=== PATIENT | female | born 1940 | race American Indian/Alaskan Native ===

== ENCOUNTER 2017-10-14 16:45 | Inpatient (IN) | payer OTHER ==
[2017-10-14] MEDS ORDERED: NACL 0.9% 1000 ML 1,000 ML IV ONE ×3 (17:08→22:49)
[2017-10-14] MEDS ORDERED: ZOFRAN IV ONE (17:09)
[2017-10-14] MEDS ORDERED: MORPHINE IV ONE (17:09)
--- NOTE | 2017-10-14 17:16 | Emergency Department Report ---
ED Abdominal Pain HPI - General Chief Complaint: Abdominal Pain Stated Complaint: ABDOMINAL PAIN Time Seen by Provider: 10/14/17 17:03 Source: patient Mode of arrival: Ambulatory Limitations: No Limitations - History of Present Illness Initial Comments: Patient is 77 years old female history of diabetes hypertension and history of incarcerated abdominal hernia in 2014 that required immediate laparoscopic surgery. Patient had sepsis at that time. Patient presented today complaining of abdominal pain for the last 2 days and having difficulty passing stool and flatus. Patient stated that she's been having vomiting since yesterday. She denied any fever. MD Complaint: abdominal pain -: days(s) Location: diffuse Severity: moderate Severity scale (0 -10): 6 - Related Data Home Medications Medication Instructions Recorded Confirmed Last Taken Lisinopril/Hydrochlorothiazide 1 tab PO QDAY 08/13/14 10/15/17 Unknown [Zestoretic 20-12.5 mg] Aspirin [Lo-Dose Aspirin EC] 81 mg PO DAILY 10/15/17 10/15/17 Unknown metFORMIN [Glucophage] 1,000 mg PO BID 10/15/17 10/15/17 Unknown Allergies Allergy/AdvReac Type Severity Reaction Status Date / Time acetaminophen [From Percocet] AdvReac Severe Unknown Verified 08/05/14 12:14 oxycodone HCl [From Percocet] AdvReac Severe Unknown Verified 08/05/14 12:14 LEVAQUIN Allergy Rash Uncoded 07/22/14 07:53 QUININE Allergy Rash Uncoded 07/22/14 07:52 ED Review of Systems ROS: Stated complaint: ABDOMINAL PAIN Other details as noted in HPI Comment: All other systems reviewed and negative Constitutional: denies: chills, fever Respiratory: denies: cough, orthopnea, shortness of breath, SOB with exertion, SOB at rest, wheezing Cardiovascular: denies: chest pain, palpitations, dyspnea on exertion Gastrointestinal: abdominal pain, nausea, vomiting, constipation. denies: diarrhea, hematemesis, melena, hematochezia Musculoskeletal: denies: back pain, joint swelling Neurological: denies: headache, weakness, numbness, paresthesias, confusion ED Past Medical Hx - Past Medical History Hx Hypertension: Yes Hx Diabetes: Yes Hx Renal Disease: Yes (ARF improving, BUN/CR 11/1.5) Additional medical history: abd hernia - Surgical History Past Surgical History?: Yes Additional Surgical History: hernia surgery - Social History Smoking Status: Never Smoker Substance Use Type: None - Medications Home Medications: Home Medications Medication Instructions Recorded Confirmed Last Taken Type Lisinopril/Hydrochlorothiazide 1 tab PO QDAY 08/13/14 10/15/17 Unknown History [Zestoretic 20-12.5 mg] Aspirin [Lo-Dose Aspirin EC] 81 mg PO DAILY 10/15/17 10/15/17 Unknown History metFORMIN [Glucophage] 1,000 mg PO BID 10/15/17 10/15/17 Unknown History ED Physical Exam - General Limitations: No Limitations General appearance: alert, in no apparent distress - Head Head exam: Present: atraumatic, normocephalic, normal inspection - Eye Eye exam: Present: normal appearance, PERRL - ENT ENT exam: Present: normal exam, mucous membranes dry - Neck Neck exam: Present: normal inspection, full ROM. Absent: tenderness, meningismus, lymphadenopathy, thyromegaly - Respiratory Respiratory exam: Present: normal lung sounds bilaterally. Absent: respiratory distress, wheezes, rales, rhonchi, chest wall tenderness, accessory muscle use, decreased breath sounds, prolonged expiratory - Cardiovascular Cardiovascular Exam: Present: regular rate, normal rhythm, normal heart sounds - GI/Abdominal GI/Abdominal exam: Present: soft, distended, tenderness, diminished bowel sounds , hernia. Absent: guarding, rebound, rigid, organomegaly, mass, bruit, pulsatile mass - Extremities Exam Extremities exam: Present: normal inspection, full ROM, normal capillary refill - Back Exam Back exam: Present: normal inspection, full ROM. Absent: tenderness, CVA tenderness (R), CVA tenderness (L), muscle spasm, paraspinal tenderness, vertebral tenderness - Neurological Exam Neurological exam: Present: alert, oriented X3, CN II-XII intact, normal gait - Skin Skin exam: Present: warm, dry, normal color ED Course Vital Signs 10/14/17 10/14/17 10/14/17 16:51 18:12 18:15 Temperature 98.3 F Pulse Rate 82 Respiratory 16 Rate Blood Pressure 108/50 112/46 O2 Sat by Pulse 96 70 L 93 Oximetry 10/14/17 10/14/17 10/14/17 18:30 19:00 19:30 Temperature Pulse Rate Respiratory Rate Blood Pressure 112/46 120/48 120/48 O2 Sat by Pulse 96 97 95 Oximetry 10/14/17 10/14/17 10/14/17 20:53 21:00 21:30 Temperature Pulse Rate Respiratory Rate Blood Pressure 120/48 125/55 120/48 O2 Sat by Pulse 95 96 95 Oximetry 10/14/17 10/15/17 21:38 02:26 Temperature 98.1 F Pulse Rate 82 Respiratory 18 Rate Blood Pressure 120/48 119/53 O2 Sat by Pulse 94 97 Oximetry ED Medical Decision Making - Lab Data Result diagrams: 10/16/17 21:50 10/16/17 04:29 Critical care attestation.: If time is entered above; I have spent that time in minutes in the direct care of this critically ill patient, excluding procedure time. ED Disposition Clinical Impression: Acute hyperglycemia, Abdominal pain, Small bowel obstruction, partial Disposition: DC-[id number] OP ADMIT IP TO THIS HOSP Is pt being admited?: Yes Condition: Stable
[2017-10-14 17:53] LABS: Basophils % (Auto) 0.4 % (0.0-1.8); Eosinophils # (Auto) 0.1 K/mm3 (0.0-0.4); Eosinophils % (Auto) 0.5 % (0.0-4.3); Hematocrit 36.5 % (30.3-42.9); Lymphocytes # (Auto) 1.7 K/mm3 (1.2-5.4); Lymphocytes % (Auto) 13.5 % (13.4-35.0); Mean Corpuscular HGB Conc 33 % (30-34); Mean Corpuscular Hemoglobin 26 pg (28-32); Mean Corpuscular Volume 80 fl (79-97); Monocytes # (Auto) 1.4 K/mm3 (0.0-0.8); Monocytes % (Auto) 10.9 % (0.0-7.3); Platelet Count 240 K/mm3 (140-440); Red Blood Count 4.59 M/mm3 (3.65-5.03); Red Cell Distribution Width 13.4 % (13.2-15.2)
[2017-10-14] MEDS ORDERED: ZOSYN/NS 3.375GM/50ML 3.375 GM/50 ML BAG IV ONE (18:00)
[2017-10-14 18:10] LABS: Albumin 3.5 g/dL (3.9-5); Bilirubin,Direct 0.3 mg/dL (0-0.2)
[2017-10-14] MEDS: ZOSYN/NS 3.375GM/50ML 3.375 GM/50 ML BAG IV SCH ×2 (18:54→19:13)
[2017-10-14] MEDS ORDERED: HumuLIN R IV ONE (19:29)
--- NOTE | 2017-10-14 21:23 | Cat Scan Report ---
FINAL REPORT PROCEDURE: CT ABDOMEN PELVIS W CON TECHNIQUE: Computerized axial tomography of the abdomen and pelvis was performed after the IV injection of iodinated nonionic contrast. HISTORY: abdominal pain/obstructed abdominal hernia COMPARISON: No prior studies are available for comparison. FINDINGS: Lower Lung mensah: There appears to be a small amount of dependent atelectasis. No dense consolidations are seen. Upper Abdomen: The liver, the gallbladder, the adrenal glands, the pancreas and spleen are unremarkable. Kidneys, Ureters and Urinary bladder: Extrarenal pelvis of the right and left kidneys present, normal variant. The kidneys, the ureters and urinary bladder otherwise are unremarkable. Retroperitoneum: Atherosclerotic changes are seen in the abdominal aorta and iliac arteries. No aneurysm is visualized. Nonspecific subcentimeter lymph nodes are seen in the retroperitoneum. No pathologically enlarged lymph nodes are identified. Bowel: There are 2 anterior abdominal hernias present. These are fairly large. These are both located in the midline 1 superior to the other. The larger of the 2 is located superior and contains a portion of the transverse colon and several loops of small bowel which are fluid in gas distended. A loop of small bowel partially projecting into this hernia shows a caliber change on image 89 series 2. Small bowel proximal to this partial herniation is fluid distended, distal is not fluid distended. There appears to be a partial obstruction. The smaller of the 2 hernias is fairly large and contains loops of small bowel and mesentery. 2 loops of small bowel projecting into the hernia on axial image 112 series 2 show a significant caliber change at the hernia orifice. This appears to be causing partial bowel obstruction. There is only minimal ascites collected in the lower pelvis in the cul-de-sac. There is no free intraperitoneal gas. Postsurgical changes appear to be present in the anterior abdominal wall with surgical clips seen adjacent to the right and left side of the larger hernia orifice. Reproductive organs: Uterus mildly deviated to the left of midline. No abnormal adnexal masses are seen. Small amount of ascites visualized in the cul-de-sac. Other: No acute bony abnormalities are seen. Small well-defined sclerotic density seen in the left ilium medially superiorly appears represent a bone island. IMPRESSION: There are 2 large anterior abdominal wall hernias as described, 1 is located superior to the other in the midline. The larger of the 2 shows a significant caliber change in a loop of small bowel partially projecting into the hernia orifice to the left and inferiorly as described. Please see above image reference numbers. This appears to be causing a partial bowel obstruction. Hernia orifice inferior also shows significant caliber change in 2 loops of small bowel suggesting partial bowel obstruction as well. There is only minimal ascites. No free air is seen.
[2017-10-14 22:35] LABS: Bilirubin,Urine NEG (Negative); Blood,Urine NEG (Negative); Color,Urine Yellow (Yellow); Mucus,Urine FEW /HPF; Protein,Urine <15 mg/dL mg/dL (Negative); Urobilinogen,Urine < 2.0 mg/dL (<2.0); WBC,Urine < 1.0 /HPF (0.0-6.0)
--- NOTE | 2017-10-14 23:20 | Emergency Department Report ---
Blank Doc - Documentation Documentation: I was asked by Dr. Chau to follow up on this patient's CT scan of the abdomen and pelvis and assist with disposition. The patient is here for abdominal pain, nausea, vomiting and concern for abdominal wall/ventral hernia. The CT scan results are below: PROCEDURE: CT ABDOMEN PELVIS W CON TECHNIQUE: Computerized axial tomography of the abdomen and pelvis was performed after the IV injection of iodinated nonionic contrast. HISTORY: abdominal pain/obstructed abdominal hernia COMPARISON: No prior studies are available for comparison. FINDINGS: Lower Lung mensah: There appears to be a small amount of dependent atelectasis. No dense consolidations are seen. Upper Abdomen: The liver, the gallbladder, the adrenal glands, the pancreas and spleen are unremarkable. Kidneys, Ureters and Urinary bladder: Extrarenal pelvis of the right and left kidneys present, normal variant. The kidneys, the ureters and urinary bladder otherwise are unremarkable. Retroperitoneum: Atherosclerotic changes are seen in the abdominal aorta and iliac arteries. No aneurysm is visualized. Nonspecific subcentimeter lymph nodes are seen in the retroperitoneum. No pathologically enlarged lymph nodes are identified. Bowel: There are 2 anterior abdominal hernias present. These are fairly large. These are both located in the midline 1 superior to the other. The larger of the 2 is located superior and contains a portion of the transverse colon and several loops of small bowel which are fluid in gas distended. A loop of small bowel partially projecting into this hernia shows a caliber change on image 89 series 2. Small bowel proximal to this partial herniation is fluid distended, distal is not fluid distended. There appears to be a partial obstruction. The smaller of the 2 hernias is fairly large and contains loops of small bowel and mesentery. 2 loops of small bowel projecting into the hernia on axial image 112 series 2 show a significant caliber change at the hernia orifice. This appears to be causing partial bowel obstruction. There is only minimal ascites collected in the lower pelvis in the cul-de-sac. There is no free intraperitoneal gas. Postsurgical changes appear to be present in the anterior abdominal wall with surgical clips seen adjacent to the right and left side of the larger hernia orifice. Reproductive organs: Uterus mildly deviated to the left of midline. No abnormal adnexal masses are seen. Small amount of ascites visualized in the cul-de-sac. Other: No acute bony abnormalities are seen. Small well-defined sclerotic density seen in the left ilium medially superiorly appears represent a bone island. IMPRESSION: There are 2 large anterior abdominal wall hernias as described, 1 is located superior to the other in the midline. The larger of the 2 shows a significant caliber change in a loop of small bowel partially projecting into the hernia orifice to the left and inferiorly as described. Please see above image reference numbers. This appears to be causing a partial bowel obstruction. Hernia orifice inferior also shows significant caliber change in 2 loops of small bowel suggesting partial bowel obstruction as well. There is only minimal ascites. No free air is seen. Transcribed By: [email or web address] Dictated By: YURIY RODRIGUEZ MD Electronically Authenticated By: YURIY RODRIGUEZ MD Signed Date/Time: 10/14/172117 I spoke with the general surgeon on-call, Dr. Castro, who is aware of the patient's 2 large abdominal wall hernias and one of them showing a partial small bowel obstruction. The patient has already received IV resuscitation and will be placed at 125 mL per hour. She is already received IV antibiotics. He does not plan to do any surgery emergently tonight. The patient may need surgery tomorrow and he will see the patient as a consult. Patient made NPO. The patient has hyperglycemia and received IV insulin and IV fluid and it is now down to 256 on Accu-Chek. She has hyponatremia with sodium of 120 but has received 2 L of IV fluid thus far and repeat labs I'm sure will be done in a few hours in the morning. The consult for Dr. Castro has been placed and the patient has been accepted for admission by the hospitalist.
[2017-10-15] MEDS ORDERED: SODIUM CHLORIDE FLUSH SYRINGE 10 ML IV PRN (00:36)
[2017-10-15] MEDS ORDERED: D50W (25GM) Syringe IV PRN (00:43)
--- NOTE | 2017-10-15 01:11 | History and Physical Report ---
History of Present Illness Date of examination: 10/15/17 Chief complaint: Abdominal pain History of present illness: Patient is a 77 year old female with history of abdominal hernia repair in 2014 who presented to the ED on account of 5 days history of generalized abdominal pain. She described it as sharp in character, rated 10 over 10, nonradiating and constant in duration. She has associated nausea with vomiting , constipation, generalized weakness and easy fatigability. She denies fever, chills, chest pain, shortness of breath, headaches, dizziness, syncope or loss of consciousness. Past History Past Medical History: diabetes, hypertension, other (abdominal hernia) Past Surgical History: hernia repair Social history: other (she denies tobacco, alcohol or illicit drug use.) Family history: other (reviewed and noncontributory) Medications and Allergies Allergies Allergy/AdvReac Type Severity Reaction Status Date / Time acetaminophen [From Percocet] AdvReac Severe Unknown Verified 08/05/14 12:14 oxycodone HCl [From Percocet] AdvReac Severe Unknown Verified 08/05/14 12:14 LEVAQUIN Allergy Rash Uncoded 07/22/14 07:53 QUININE Allergy Rash Uncoded 07/22/14 07:52 Home Medications Medication Instructions Recorded Confirmed Last Taken Type Lisinopril/Hydrochlorothiazide 1 tab PO QDAY 08/13/14 09/28/14 Unknown History [Zestoretic 20-12.5 mg] Cyproheptadine [Periactin] 4 mg PO Q8HR #42 tablet 09/21/14 09/28/14 Unknown Rx Docusate Sodium [Colace CAP] 100 mg PO BID #30 capsule 09/21/14 09/28/14 Unknown Rx Famotidine [Pepcid] 20 mg PO DAILY #30 tablet 09/21/14 09/28/14 Unknown Rx Gabapentin [Neurontin] 400 mg PO Q8HR #42 capsule 09/21/14 09/28/14 Unknown Rx HYDROcodone/APAP 5-325 [[place] 1 each PO Q6H PRN #56 tablet 09/21/14 09/28/14 Unknown Rx 5-325 mg TAB] Active Meds: Active Medications Dextrose (D50w (25gm) Syringe) 50 ml IV PRN PRN PRN Reason: Hypoglycemia Piperacillin Sod/Tazobactam Sod (Zosyn/Ns 2.25 Gm/50ml) 2.25 gm in 50 mls @ 100 mls/hr IV Q6HR SEBAS Sodium Chloride (Nacl 0.9% 1000 Ml) 1,000 mls @ 125 mls/hr IV ONCE ONE Stop: 10/15/17 06:48 Sodium Chloride (Nacl 0.9% 1000 Ml) 1,000 mls @ 100 mls/hr IV DIRECT SEBAS Insulin Glargine (Lantus) 20 units SUB-Q QHS SEBAS Insulin Human Lispro (Humalog) 0 unit SUB-Q Q6HR SEBAS; Protocol Morphine Sulfate (Morphine) 2 mg IV Q4H PRN PRN Reason: Pain, Moderate (4-6) Ondansetron HCl (Zofran) 4 mg IV Q8H PRN PRN Reason: Nausea And Vomiting Pantoprazole Sodium (Protonix) 40 mg IV DAILY SEBAS Sodium Chloride (Sodium Chloride Flush Syringe 10 Ml) 10 ml IV BID SEBAS Sodium Chloride (Sodium Chloride Flush Syringe 10 Ml) 10 ml IV PRN PRN PRN Reason: LINE FLUSH Review of Systems All systems: negative (except as documented in the HPI, all other systems were reviewed and negative.) Exam - Constitutional Vitals: Temp Pulse Resp BP Pulse Ox 98.3 F 82 16 120/48 94 10/14/17 16:51 10/14/17 16:51 10/14/17 16:51 10/14/17 21:38 10/14/17 21:38 General appearance: Present: no acute distress - EENT Eyes: Present: PERRL, EOM intact ENT: hearing intact, clear oral mucosa - Neck Neck: Present: supple, normal ROM - Respiratory Respiratory effort: normal Respiratory: bilateral: CTA - Cardiovascular Rhythm: regular Heart Sounds: Present: S1 & S2. Absent: rub, click - Extremities Extremities: pulses symmetrical, No edema Peripheral Pulses: within normal limits - Abdominal General gastrointestinal: Present: soft, tender (generalized), distended (on the LT side), hypoactive bowel sounds - Integumentary Integumentary: Present: warm, dry - Musculoskeletal Musculoskeletal: generalized weakness - Psychiatric Psychiatric: appropriate mood/affect - Neurologic Neurologic: CNII-XII intact, moves all extremities Results - Labs CBC & Chem 7: 10/14/17 17:37 10/14/17 17:37 Labs: Laboratory Last Values WBC 12.6 K/mm3 (4.5-11.0) H 10/14/17 17:37 RBC 4.59 M/mm3 (3.65-5.03) 10/14/17 17:37 Hgb 12.0 gm/dl (10.1-14.3) 10/14/17 17:37 Hct 36.5 % (30.3-42.9) 10/14/17 17:37 MCV 80 fl (79-97) 10/14/17 17:37 MCH 26 pg (28-32) L 10/14/17 17:37 MCHC 33 % (30-34) 10/14/17 17:37 RDW 13.4 % (13.2-15.2) 10/14/17 17:37 Plt Count 240 K/mm3 (140-440) 10/14/17 17:37 Lymph % (Auto) 13.5 % (13.4-35.0) 10/14/17 17:37 [place] % (Auto) 10.9 % (0.0-7.3) H 10/14/17 17:37 Eos % (Auto) 0.5 % (0.0-4.3) 10/14/17 17:37 Baso % (Auto) 0.4 % (0.0-1.8) 10/14/17 17:37 Lymph # 1.7 K/mm3 (1.2-5.4) 10/14/17 17:37 [place] # 1.4 K/mm3 (0.0-0.8) H 10/14/17 17:37 Eos # 0.1 K/mm3 (0.0-0.4) 10/14/17 17:37 Baso # 0.0 K/mm3 (0.0-0.1) 10/14/17 17:37 Seg Neutrophils % 74.7 % (40.0-70.0) H 10/14/17 17:37 Seg Neutrophils # 9.4 K/mm3 (1.8-7.7) H 10/14/17 17:37 Sodium 120 mmol/L (137-145) L 10/14/17 17:37 Potassium 4.3 mmol/L (3.6-5.0) 10/14/17 17:37 Chloride 73.9 mmol/L (98-107) L 10/14/17 17:37 Carbon Dioxide 28 mmol/L (22-30) 10/14/17 17:37 Anion Gap 22 mmol/L 10/14/17 17:37 BUN 80 mg/dL (7-17) H 10/14/17 17:37 Creatinine 1.6 mg/dL (0.7-1.2) H 10/14/17 17:37 Estimated GFR 38 ml/min 10/14/17 17:37 BUN/Creatinine Ratio 50 % 10/14/17 17:37 Glucose 486 mg/dL (65-100) H 10/14/17 17:37 POC Glucose 256 (70-105) H 10/14/17 22:43 Lactic Acid 1.90 mmol/L (0.7-2.0) 10/14/17 17:37 Calcium 8.0 mg/dL (8.4-10.2) L 10/14/17 17:37 Total Bilirubin 0.80 mg/dL (0.1-1.2) 10/14/17 17:37 Direct Bilirubin 0.3 mg/dL (0-0.2) H 10/14/17 17:37 Indirect Bilirubin 0.5 mg/dL 10/14/17 17:37 AST 16 units/L (5-40) 10/14/17 17:37 ALT 24 units/L (7-56) 10/14/17 17:37 Alkaline Phosphatase 82 units/L (35-129) 10/14/17 17:37 Total Protein 7.4 g/dL (6.3-8.2) 10/14/17 17:37 Albumin 3.5 g/dL (3.9-5) L 10/14/17 17:37 Albumin/Globulin Ratio 0.9 % 10/14/17 17:37 Lipase 23 units/L (13-60) 10/14/17 17:37 Urine Color Yellow (Yellow) 10/14/17 22:07 Urine Turbidity Clear (Clear) 10/14/17 22:07 Urine pH 6.0 (5.0-7.0) 10/14/17 22:07 Ur Specific [place] 1.016 (1.003-1.030) 10/14/17 22:07 Urine Protein <15 mg/dl mg/dL (Negative) 10/14/17 22:07 Urine Glucose (UA) >=500 mg/dL (Negative) 10/14/17 22:07 Urine Ketones Neg mg/dL (Negative) 10/14/17 22:07 Urine Blood Neg (Negative) 10/14/17 22:07 Urine Nitrite Neg (Negative) 10/14/17 22:07 Urine Bilirubin Neg (Negative) 10/14/17 22:07 Urine Urobilinogen < 2.0 mg/dL (<2.0) 10/14/17 22:07 Ur Leukocyte Esterase Neg (Negative) 10/14/17 22:07 Urine WBC (Auto) < 1.0 /HPF (0.0-6.0) 10/14/17 22:07 Urine RBC (Auto) 2.0 /HPF (0.0-6.0) 10/14/17 22:07 U Epithel Cells (Auto) < 1.0 /HPF (0-13.0) 10/14/17 22:07 Urine Mucus Few /HPF 10/14/17 22:07 Assessment and Plan Assessment and plan: Recurrent abdominal wall hernia with partial small bowel obstruction -Gen. Surgeon was consulted in the ED, IV antibiotic and nothing by mouth recommended -Patient will be placed on when necessary narcotics for pain control Intractable nausea and vomiting, secondary to the partial small bowel obstruction -Patient will be placed on antiemetics and IV fluid Acute kidney injury, likely secondary to dehydration -Will place patient on IV fluid and monitor her creatinine level [id number] diabetes mellitus type 2 with hyperglycemia -Will place patient on both basal and prandial insulin regimen -Will check a hemoglobin A1c level Hyponatremia -Patient will be started on IV fluid and monitor her sodium level. Hypertension, stable Leukocytosis -Patient started on an empiric IV antibiotic -Will follow up blood culture results Prophylaxis -DVT prophylaxis with SCD and GI prophylaxis with Protonix 38 minutes spent coordinating care
[2017-10-15] MEDS ORDERED: APRESOLINE IV PRN (01:19)
[2017-10-15] MEDS: ZOSYN/NS 2.25 GM/50ML 2.25 GM/50 ML BAG IV SCH ×3 (01:33→11:57)
[2017-10-15] MEDS: MORPHINE IV PRN ×3 (02:45→20:38)
[2017-10-15 06:42] LABS: Calcium 7.5 mg/dL (8.4-10.2)
[2017-10-15] MEDS: HumaLOG SUB-Q SCH ×2 (06:48→11:54)
[2017-10-15] MEDS: NACL 0.9% 1000 ML 1,000 ML IV SCH (08:13)
--- NOTE | 2017-10-15 09:34 | XRay Report ---
AP ABDOMEN: HISTORY: Abdominal pain. Compared to the CT abdomen pelvis dated 10/14/17. There are a few dilated loops of small bowel in the midabdomen consistent with small bowel obstruction. No significant change is appreciated since the CT performed yesterday. There is trace gas in the colon. No large free air is appreciated. The lung bases are not included. IMPRESSION: Persistent small bowel obstruction pattern.
[2017-10-15] MEDS ORDERED: SODIUM CHLORIDE FLUSH SYRINGE 10 ML IV SCH (10:00)
[2017-10-15] MEDS ORDERED: PROTONIX IV SCH (10:00)
--- NOTE | 2017-10-15 13:54 | Anesthesia Consultation ---
Anesthesia Consult and Med Hx Date of service: 10/15/17 - Airway Anesthetic Teeth Evaluation: Good ROM Head & Neck: Adequate Mental/Hyoid Distance: Adequate Mallampati Class: Class II Intubation Access Assessment: Probably Good - Pulmonary Exam CTA: Yes - Cardiac Exam Cardiac Exam: RRR - Pre-Operative Health Status ASA Pre-Surgery Classification: ASA4 Proposed Anesthetic Plan: General (rapid sequence with cricoid pressure / low dose of induction drugs) - Pre-Anesthesia Comment Pre-Anesthesia Comments: speaks very little sinhala/probable sepsis/B/P has been running lower - Pulmonary Hx Smoking: No Hx Asthma: No Hx Respiratory Symptoms: No Home Oxygen Therapy: No Hx Pneumonia: No Hx Sleep Apnea: No - Cardiovascular System Hx Hypertension: Yes Hx Coronary Artery Disease: No Hx Heart Attack/AMI: No Hx Angina: No Hx Percutaneous Transluminal Coronary Angioplasty (PTCA): No Hx Cardia Arrhythmia: No Hx Pacemaker: No Hx Internal Defibrillator: No Hx Valvular Heart Disease: No Hx Heart Murmur: No Hx Peripheral Vascular Disease: No - Central Nervous System Hx Seizures: No CVA: No Hx Back Pain: No Hx Psychiatric Problems: No - Gastrointestinal Hx Gastroesophageal Reflux Disease: No (chronic abdominal pain post hernia repair 2014/?obstruction) - Endocrine Hx Renal Disease: Yes Hx Insulin Dependent Diabetes: Yes (Glucose 317, 8 units Regular insulin IV ) - Hematic Hx Anemia: Yes (03/08) - Other Systems Hx Alcohol Use: No Hx Substance Use: No Hx Cancer: No
--- NOTE | 2017-10-15 13:55 | Anesthesia Day of Surgery ---
Anesthesia Day of Surgery - Day of Surgery Patient Examined: Yes Patient H&P Reviewed: Yes Patient is NPO: Yes Beta Blockers: Yes Cardiac Clearance: No Pulmonary Clearance: No
[2017-10-15] MEDS ORDERED: TORADOL IV PRN (13:56)
[2017-10-15] MEDS ORDERED: NACL 0.9% 1000 ML 1,000 ML IV SCH (14:00)
[2017-10-15] MEDS ORDERED: XYLOCAINE MPF 2% ONE (14:19)
[2017-10-15] MEDS ORDERED: DIPRIVAN 10 MG/ML IV ONE (14:19)
[2017-10-15] MEDS ORDERED: ZEMURON IV ONE (14:20)
[2017-10-15] MEDS ORDERED: FLAGYL 500 MG/100 ML 500 MG/100 ML BAG IV NR (14:25)
[2017-10-15] MEDS ORDERED: DIFLUCAN 200 ML IV NR (14:27)
[2017-10-15] MEDS ORDERED: QUELICIN ONE (14:40)
[2017-10-15] MEDS ORDERED: PEPCID IV NR (15:00)
[2017-10-15] MEDS ORDERED: NEO SYNEPHRINE/NS Syringe(OR USE) IV ONE (15:24)
[2017-10-15] MEDS ORDERED: ePHEDrine SULFATE ONE (15:35)
[2017-10-15] MEDS ORDERED: NACL 0.9% IR ONE (15:51)
[2017-10-15] MEDS ORDERED: NACL 0.9% 1000 ML 1,000 ML ONE (16:04)
[2017-10-15] MEDS ORDERED: ZOFRAN ONE (17:42)
[2017-10-15] MEDS ORDERED: HumuLIN R IV ONE (17:52)
[2017-10-15] MEDS: DILAUDID IV PRN ×2 (18:06→18:20)
[2017-10-15] MEDS ORDERED: TORADOL IV ONE (19:48)
--- NOTE | 2017-10-15 19:57 | Progress Note ---
Hospitalist Physical - Constitutional Vitals: Temp Pulse Resp BP Pulse Ox 96.8 F L 106 H 24 114/51 100 10/15/17 17:35 10/15/17 19:30 10/15/17 19:50 10/15/17 19:30 10/15/17 19:30 General appearance: Present: no acute distress Results - Labs CBC & Chem 7: 10/14/17 17:37 10/15/17 04:51 Labs: Laboratory Last Values WBC 12.6 K/mm3 (4.5-11.0) H 10/14/17 17:37 RBC 4.59 M/mm3 (3.65-5.03) 10/14/17 17:37 Hgb 12.0 gm/dl (10.1-14.3) 10/14/17 17:37 Hct 36.5 % (30.3-42.9) 10/14/17 17:37 MCV 80 fl (79-97) 10/14/17 17:37 MCH 26 pg (28-32) L 10/14/17 17:37 MCHC 33 % (30-34) 10/14/17 17:37 RDW 13.4 % (13.2-15.2) 10/14/17 17:37 Plt Count 240 K/mm3 (140-440) 10/14/17 17:37 Lymph % (Auto) 13.5 % (13.4-35.0) 10/14/17 17:37 [place] % (Auto) 10.9 % (0.0-7.3) H 10/14/17 17:37 Eos % (Auto) 0.5 % (0.0-4.3) 10/14/17 17:37 Baso % (Auto) 0.4 % (0.0-1.8) 10/14/17 17:37 Lymph # 1.7 K/mm3 (1.2-5.4) 10/14/17 17:37 [place] # 1.4 K/mm3 (0.0-0.8) H 10/14/17 17:37 Eos # 0.1 K/mm3 (0.0-0.4) 10/14/17 17:37 Baso # 0.0 K/mm3 (0.0-0.1) 10/14/17 17:37 Seg Neutrophils % 74.7 % (40.0-70.0) H 10/14/17 17:37 Seg Neutrophils # 9.4 K/mm3 (1.8-7.7) H 10/14/17 17:37 Sodium 132 mmol/L (137-145) L D 10/15/17 04:51 Potassium 4.1 mmol/L (3.6-5.0) 10/15/17 04:51 Chloride 88.3 mmol/L (98-107) L 10/15/17 04:51 Carbon Dioxide 28 mmol/L (22-30) 10/15/17 04:51 Anion Gap 20 mmol/L 10/15/17 04:51 BUN 58 mg/dL (7-17) H 10/15/17 04:51 Creatinine 1.3 mg/dL (0.7-1.2) H 10/15/17 04:51 Estimated GFR 48 ml/min 10/15/17 04:51 BUN/Creatinine Ratio 45 % 10/15/17 04:51 Glucose 269 mg/dL (65-100) H 10/15/17 04:51 POC Glucose 345 (70-105) H 10/15/17 17:50 Hemoglobin A1c 11.7 % (4-6) H 10/15/17 04:51 Lactic Acid 1.90 mmol/L (0.7-2.0) 10/14/17 17:37 Calcium 7.5 mg/dL (8.4-10.2) L 10/15/17 04:51 Total Bilirubin 0.80 mg/dL (0.1-1.2) 10/14/17 17:37 Direct Bilirubin 0.3 mg/dL (0-0.2) H 10/14/17 17:37 Indirect Bilirubin 0.5 mg/dL 10/14/17 17:37 AST 16 units/L (5-40) 10/14/17 17:37 ALT 24 units/L (7-56) 10/14/17 17:37 Alkaline Phosphatase 82 units/L (35-129) 10/14/17 17:37 Total Protein 7.4 g/dL (6.3-8.2) 10/14/17 17:37 Albumin 3.5 g/dL (3.9-5) L 10/14/17 17:37 Albumin/Globulin Ratio 0.9 % 10/14/17 17:37 Lipase 23 units/L (13-60) 10/14/17 17:37 Urine Color Yellow (Yellow) 10/14/17 22:07 Urine Turbidity Clear (Clear) 10/14/17 22:07 Urine pH 6.0 (5.0-7.0) 10/14/17 22:07 Ur Specific [place] 1.016 (1.003-1.030) 10/14/17 22:07 Urine Protein <15 mg/dl mg/dL (Negative) 10/14/17 22:07 Urine Glucose (UA) >=500 mg/dL (Negative) 10/14/17 22:07 Urine Ketones Neg mg/dL (Negative) 10/14/17 22:07 Urine Blood Neg (Negative) 10/14/17 22:07 Urine Nitrite Neg (Negative) 10/14/17 22:07 Urine Bilirubin Neg (Negative) 10/14/17 22:07 Urine Urobilinogen < 2.0 mg/dL (<2.0) 10/14/17 22:07 Ur Leukocyte Esterase Neg (Negative) 10/14/17 22:07 Urine WBC (Auto) < 1.0 /HPF (0.0-6.0) 10/14/17 22:07 Urine RBC (Auto) 2.0 /HPF (0.0-6.0) 10/14/17 22:07 U Epithel Cells (Auto) < 1.0 /HPF (0-13.0) 10/14/17 22:07 Urine Mucus Few /HPF 10/14/17 22:07 Blood Type O POSITIVE 10/15/17 14:00 Antibody Screen Positive 10/15/17 14:00 Antibody Identification Anti-K 10/15/17 14:00 Crossmatch See Detail 10/15/17 14:00
--- NOTE | 2017-10-15 19:57 | Event Note ---
Date: 11/06/17 78-year-old -[place] female patient with history of abdominal hernia repair in 2014 was admitted through emergency room with generalized abdominal pain associated with nausea vomiting constipation and generalized weakness Initial workup is consistent with partial small bowel obstruction Admitted symptomatically being managed,, IV fluids, nothing by mouth status, consulted surgery. I have seen and examined the patient and medical records reviewed Agree with the current management , Follow surgery evaluation and recommendations Plan of care discussed with the patient and the family member at the bedside and her nurse
--- NOTE | 2017-10-15 20:05 | Post Anesthesia Evaluation ---
- Post Anesthesia Evaluation Airway Patent: Yes Stable Respiratory Function: Yes Nausea/Vomiting: Yes Temp > 96.8F: Yes Pain Manageable: Yes Adequeate Hydration: Yes Anesthesia Complications: No Block Receding Appropriately: Not Applicable Patient on Ventilator: No
[2017-10-15 21:31] LABS: Hematocrit 34.7 % (30.3-42.9)
--- NOTE | 2017-10-15 22:31 | Operative Report ---
PREOPERATIVE DIAGNOSES: 1. Incarcerated incisional hernia x 2. 2. Diabetes mellitus. POSTOPERATIVE DIAGNOSES: 1. Incarcerated incisional hernia x 2. 2. Diabetes mellitus. PROCEDURES: Exploratory laparotomy with excision of scar tissue and lysis of very extensive adhesions. These took care more than half the operating time. ANESTHESIA: General. BLOOD LOSS: Minimal. FINDINGS: The patient had 2 hernias in the mid abdomen. Apparently, this is status post resection of a wound in the past for the same. This was about 3 years ago. Apparently, they put a graft on it and it did not work. Over the last week, she has been having severe pain to the abdomen, severe nausea, and she was seen in the ER and showed evidence of 2 large hernias on the CAT scan and evidence of small-bowel obstruction, actually this was seen also on surgery. Findings as above. There are 2 areas. Each one contained loops of small intestines and one of them transverse colon, each measured a good 15 x 15 x 7 cm. The defects are about 5 x 5 cm including overlaying scar from the previous operation. DESCRIPTION OF PROCEDURE: With the patient in supine position, prepped and draped in usual fashion. I made a spindle-shaped incision around the two hernias deep subcutaneous tissue, which in fact nonexistent, so I went all the way to the fascia just at the edge by about 1 cm. I was able to excise it in toto all around. Then, I had to do a very extensive lysis of adhesions. It took a good 45 minutes to do the lysis of adhesions at least, mainly of loops of small intestines that required lysis all the way on both sides of the abdomen. I was well satisfied, I had had a small rent in the small intestine barely about 0.5 cm. This was handled with interrupted stitches of 3-0 Vicryl and then I had to decompress intestines to have a good closure of the fascia. The abdominal cavity was then irrigated very thoroughly with normal saline. I was well satisfied. Then, the wound was closed in one layer, I used for that purpose [id number] fashion #5 Ethibond with rubber shots. I was very much satisfied. I did leave some Telfa laine with Betadine between the sutures and the bandage. The patient was then transferred to the recovery room in good condition. She had good urine output. I talked to the family on the phone. I need to keep her at least overnight in the Intensive Care Unit, then we will go from there. JOB# [id number] NEDRA/ANNA
[2017-10-16] MEDS: PEPCID IV SCH ×2 (00:15→09:57)
[2017-10-16] MEDS: LANTUS SUB-Q SCH (00:16)
[2017-10-16] MEDS: HEPARIN SUB-Q SCH ×2 (00:17→09:57)
[2017-10-16] MEDS: HumaLOG SUB-Q SCH ×4 (00:26→19:08)
[2017-10-16] MEDS: DILAUDID IV PRN ×6 (00:32→21:48)
[2017-10-16] MEDS: ZOSYN/NS 2.25 GM/50ML 2.25 GM/50 ML BAG IV SCH ×4 (00:36→18:51)
[2017-10-16 05:25] LABS: Hematocrit 32.8 % (30.3-42.9); Hemoglobin 10.2 gm/dl (10.1-14.3); Mean Corpuscular HGB Conc 31 % (30-34); Mean Corpuscular Volume 83 fl (79-97); Red Blood Count 3.95 M/mm3 (3.65-5.03); Red Cell Distribution Width 13.7 % (13.2-15.2)
[2017-10-16 05:36] LABS: Mean Corpuscular Hemoglobin 26 pg (28-32)
[2017-10-16 05:37] LABS: Platelet Count 243 K/mm3 (140-440)
[2017-10-16 05:43] LABS: Calcium 6.5 mg/dL (8.4-10.2)
[2017-10-16 06:57] LABS: Band Neutrophils # (Manual) 6.8 K/mm3; Eosinophils % (Manual) 0 % (0.0-4.3); Total Cells Counted 100
[2017-10-16 06:58] LABS: Burr Cells Few; Ovalocytes Few
[2017-10-16] MEDS: NACL 0.9% 1000 ML 1,000 ML IV SCH (10:09)
--- NOTE | 2017-10-16 11:41 | Progress Note ---
Assessment and Plan Assessment and plan: --Small bowel obstruction ; evaluated by surgery Patient with incarcerated incisional hernia, underwent exploratory laparotomy with excision of scar tissue, lysis of very extensive adhesions Continue postop care, nothing by mouth, IV fluids, NG tube placement IV antibiotics and supportive care --Intractable nausea and vomiting; improved --Acute kidney injury; gentle hydration closely monitored function Avoid nephrotoxins --Hyponatremia; continue IV fluids and closely monitor levels --Leukocytosis; continue empiric antibiotics and follow cultures --DVT prophylaxis SCDs, no pharmacologic anticoagulation per surgery patient is postop --Hypertension; moderate control continue current antihypertensives and when necessary --Full CODE STATUS Personal monitor the patient and adjust management as needed History Interval history: Patient seen and examined medical records reviewed Patient with incarcerated incisional hernia, underwent exploratory laparotomy with excision of scar tissue, lysis of very extensive adhesions Postop day 1 Patient is nothing by mouth, NG tube placed Did not pass flatus, did not have bowel movement Complains of some pain in the abdomen Vital signs reviewed stable Hospitalist Physical - Constitutional Vitals: Temp Pulse Resp BP Pulse Ox 98.7 F 99 H 20 77/36 96 10/16/17 10:16 10/16/17 10:16 10/16/17 10:16 10/16/17 10:16 10/16/17 10:16 General appearance: Present: no acute distress, well-nourished, obese - EENT Eyes: Present: PERRL, EOM intact - Neck Neck: Present: supple, normal ROM - Respiratory Respiratory effort: normal Respiratory: bilateral: diminished, negative: rales, rhonchi, wheezing - Cardiovascular Rhythm: regular Heart Sounds: Present: S1 & S2 - Extremities Extremities: no ischemia, No edema Peripheral Pulses: within normal limits - Abdominal General gastrointestinal: soft, tender, non-distended, absent bowel sounds - Integumentary Integumentary: Present: clear, warm - Psychiatric Psychiatric: appropriate mood/affect, cooperative - Neurologic Neurologic: CNII-XII intact, moves all extremities Results - Labs CBC & Chem 7: 10/16/17 04:29 10/16/17 04:29 Labs: Laboratory Last Values WBC 13.4 K/mm3 (4.5-11.0) H 10/16/17 04:29 RBC 3.95 M/mm3 (3.65-5.03) 10/16/17 04:29 Hgb 10.2 gm/dl (10.1-14.3) 10/16/17 04:29 Hct 32.8 % (30.3-42.9) 10/16/17 04:29 MCV 83 fl (79-97) 10/16/17 04:29 MCH 26 pg (28-32) L 10/16/17 04:29 MCHC 31 % (30-34) 10/16/17 04:29 RDW 13.7 % (13.2-15.2) 10/16/17 04:29 Plt Count 243 K/mm3 (140-440) 10/16/17 04:29 Lymph % (Auto) 13.5 % (13.4-35.0) 10/14/17 17:37 [place] % (Auto) 10.9 % (0.0-7.3) H 10/14/17 17:37 Eos % (Auto) 0.5 % (0.0-4.3) 10/14/17 17:37 Baso % (Auto) 0.4 % (0.0-1.8) 10/14/17 17:37 Lymph # 1.7 K/mm3 (1.2-5.4) 10/14/17 17:37 [place] # 1.4 K/mm3 (0.0-0.8) H 10/14/17 17:37 Eos # 0.1 K/mm3 (0.0-0.4) 10/14/17 17:37 Baso # 0.0 K/mm3 (0.0-0.1) 10/14/17 17:37 Add Manual Diff Complete 10/16/17 04:29 Total Counted 100 10/16/17 04:29 Seg Neutrophils % 74.7 % (40.0-70.0) H 10/14/17 17:37 Seg Neuts % (Manual) 25.0 % (40.0-70.0) L 10/16/17 04:29 Band Neutrophils % 51.0 % 10/16/17 04:29 Lymphocytes % (Manual) 11.0 % (13.4-35.0) L 10/16/17 04:29 Reactive Lymphs % (Man) 0 % 10/16/17 04:29 Monocytes % (Manual) 5.0 % (0.0-7.3) 10/16/17 04:29 Eosinophils % (Manual) 0 % (0.0-4.3) 10/16/17 04:29 Basophils % (Manual) 1.0 % (0.0-1.8) 10/16/17 04:29 Metamyelocytes % 7.0 % 10/16/17 04:29 Myelocytes % 0 % 10/16/17 04:29 Promyelocytes % 0 % 10/16/17 04:29 Blast Cells % 0 % 10/16/17 04:29 Nucleated RBC % Not Reportable 10/16/17 04:29 Seg Neutrophils # 9.4 K/mm3 (1.8-7.7) H 10/14/17 17:37 Seg Neutrophils # Man 3.4 K/mm3 (1.8-7.7) 10/16/17 04:29 Band Neutrophils # 6.8 K/mm3 10/16/17 04:29 Lymphocytes # (Manual) 1.5 K/mm3 (1.2-5.4) 10/16/17 04:29 Abs React Lymphs (Man) 0.0 K/mm3 10/16/17 04:29 Monocytes # (Manual) 0.7 K/mm3 (0.0-0.8) 10/16/17 04:29 Eosinophils # (Manual) 0.0 K/mm3 (0.0-0.4) 10/16/17 04:29 Basophils # (Manual) 0.1 K/mm3 (0.0-0.1) 10/16/17 04:29 Metamyelocytes # 0.9 K/mm3 10/16/17 04:29 Myelocytes # 0.0 K/mm3 10/16/17 04:29 Promyelocytes # 0.0 K/mm3 10/16/17 04:29 Blast Cells # 0.0 K/mm3 10/16/17 04:29 WBC Morphology Not Reportable 10/16/17 04:29 Hypersegmented Neuts Not Reportable 10/16/17 04:29 Hyposegmented Neuts Not Reportable 10/16/17 04:29 Hypogranular Neuts Not Reportable 10/16/17 04:29 Smudge Cells Not Reportable 10/16/17 04:29 Toxic Granulation Not Reportable 10/16/17 04:29 Toxic Vacuolation Not Reportable 10/16/17 04:29 Dohle Bodies Not Reportable 10/16/17 04:29 Pelger-Huet Anomaly Not Reportable 10/16/17 04:29 Savi Rods Not Reportable 10/16/17 04:29 Platelet Estimate Appears normal 10/16/17 04:29 Clumped Platelets Not Reportable 10/16/17 04:29 Plt Clumps, EDTA Not Reportable 10/16/17 04:29 Large Platelets Not Reportable 10/16/17 04:29 Giant Platelets Not Reportable 10/16/17 04:29 Platelet Satelliting Not Reportable 10/16/17 04:29 Plt Morphology Comment Not Reportable 10/16/17 04:29 RBC Morphology Not Reportable 10/16/17 04:29 Dimorphic RBCs Not Reportable 10/16/17 04:29 Polychromasia Few 10/16/17 04:29 Hypochromasia Not Reportable 10/16/17 04:29 Poikilocytosis Not Reportable 10/16/17 04:29 Anisocytosis Not Reportable 10/16/17 04:29 Microcytosis Not Reportable 10/16/17 04:29 Macrocytosis Not Reportable 10/16/17 04:29 Spherocytes Not Reportable 10/16/17 04:29 Pappenheimer Bodies Not Reportable 10/16/17 04:29 Sickle Cells Not Reportable 10/16/17 04:29 Target Cells Not Reportable 10/16/17 04:29 Tear Drop Cells Not Reportable 10/16/17 04:29 Ovalocytes Few 10/16/17 04:29 Helmet Cells Not Reportable 10/16/17 04:29 [place] Bodies Not Reportable 10/16/17 04:29 Warriormine Rings Not Reportable 10/16/17 04:29 [place]on Cells Few 10/16/17 04:29 Bite Cells Not Reportable 10/16/17 04:29 Crenated Cell Not Reportable 10/16/17 04:29 Elliptocytes Not Reportable 10/16/17 04:29 Acanthocytes (Spur) Not Reportable 10/16/17 04:29 Rouleaux Not Reportable 10/16/17 04:29 Hemoglobin C Crystals Not Reportable 10/16/17 04:29 Schistocytes Not Reportable 10/16/17 04:29 Malaria parasites Not Reportable 10/16/17 04:29 Miguel Bodies Not Reportable 10/16/17 04:29 Hem Pathologist Commnt No 10/16/17 04:29 Sodium 141 mmol/L (137-145) D 10/16/17 04:29 Potassium 4.0 mmol/L (3.6-5.0) 10/16/17 04:29 Chloride 105.5 mmol/L (98-107) 10/16/17 04:29 Carbon Dioxide 19 mmol/L (22-30) L D 10/16/17 04:29 Anion Gap 21 mmol/L 10/16/17 04:29 BUN 40 mg/dL (7-17) H 10/16/17 04:29 Creatinine 1.4 mg/dL (0.7-1.2) H 10/16/17 04:29 Estimated GFR 44 ml/min 10/16/17 04:29 BUN/Creatinine Ratio 29 % 10/16/17 04:29 Glucose 276 mg/dL (65-100) H 10/16/17 04:29 POC Glucose 271 (70-105) H 10/16/17 06:04 Hemoglobin A1c 11.7 % (4-6) H 10/15/17 04:51 Lactic Acid 1.90 mmol/L (0.7-2.0) 10/14/17 17:37 Calcium 6.5 mg/dL (8.4-10.2) L 10/16/17 04:29 Total Bilirubin 0.80 mg/dL (0.1-1.2) 10/14/17 17:37 Direct Bilirubin 0.3 mg/dL (0-0.2) H 10/14/17 17:37 Indirect Bilirubin 0.5 mg/dL 10/14/17 17:37 AST 16 units/L (5-40) 10/14/17 17:37 ALT 24 units/L (7-56) 10/14/17 17:37 Alkaline Phosphatase 82 units/L (35-129) 10/14/17 17:37 Total Protein 7.4 g/dL (6.3-8.2) 10/14/17 17:37 Albumin 3.5 g/dL (3.9-5) L 10/14/17 17:37 Albumin/Globulin Ratio 0.9 % 10/14/17 17:37 Lipase 23 units/L (13-60) 10/14/17 17:37 Urine Color Yellow (Yellow) 10/14/17 22:07 Urine Turbidity Clear (Clear) 10/14/17 22:07 Urine pH 6.0 (5.0-7.0) 10/14/17 22:07 Ur Specific [place] 1.016 (1.003-1.030) 10/14/17 22:07 Urine Protein <15 mg/dl mg/dL (Negative) 10/14/17 22:07 Urine Glucose (UA) >=500 mg/dL (Negative) 10/14/17 22:07 Urine Ketones Neg mg/dL (Negative) 10/14/17 22:07 Urine Blood Neg (Negative) 10/14/17 22:07 Urine Nitrite Neg (Negative) 10/14/17 22:07 Urine Bilirubin Neg (Negative) 10/14/17 22:07 Urine Urobilinogen < 2.0 mg/dL (<2.0) 10/14/17 22:07 Ur Leukocyte Esterase Neg (Negative) 10/14/17 22:07 Urine WBC (Auto) < 1.0 /HPF (0.0-6.0) 10/14/17 22:07 Urine RBC (Auto) 2.0 /HPF (0.0-6.0) 10/14/17 22:07 U Epithel Cells (Auto) < 1.0 /HPF (0-13.0) 10/14/17 22:07 Urine Mucus Few /HPF 10/14/17 22:07 Blood Type O POSITIVE 10/15/17 14:00 Antibody Screen Positive 10/15/17 14:00 Antibody Identification Anti-K 10/15/17 14:00 Crossmatch See Detail 10/15/17 14:00
[2017-10-16] MEDS ORDERED: PNEUMOVAX 23 IM ONE (12:00)
--- NOTE | 2017-10-16 15:05 | Progress Note ---
Subjective Patient Reports: Positive: still having pain, no flatus, no bowel movement Narrative: Oing OK in bed NG with bilious material Pt asked to sit on a chair Tid NPO , may suck on a Candy. Objective Vital Signs - 12hr 10/16/17 10/16/17 10/16/17 03:33 03:34 03:35 Temperature Pulse Rate 101 H 101 H 101 H Respiratory Rate Blood Pressure 87/37 90/40 Blood Pressure [Left] Blood Pressure [Right] O2 Sat by Pulse 97 97 98 Oximetry 10/16/17 10/16/17 10/16/17 03:37 03:43 04:31 Temperature 98.6 F Pulse Rate 104 H 102 H Respiratory 17 Rate Blood Pressure 83/40 Blood Pressure [Left] Blood Pressure 90/40 88/40 [Right] O2 Sat by Pulse 97 98 Oximetry 10/16/17 10/16/17 05:48 10:16 Temperature 98.7 F Pulse Rate 98 H 99 H Respiratory 20 Rate Blood Pressure Blood Pressure 77/36 [Left] Blood Pressure [Right] O2 Sat by Pulse 96 96 Oximetry - Labs 10/16/17 04:29 10/16/17 04:29 Diabetes panel 10/16/17 Range/Units 04:29 Sodium 141 D (137-145) mmol/L Potassium 4.0 (3.6-5.0) mmol/L Chloride 105.5 (98-107) mmol/L Carbon Dioxide 19 L D (22-30) mmol/L BUN 40 H (7-17) mg/dL Creatinine 1.4 H (0.7-1.2) mg/dL Glucose 276 H (65-100) mg/dL Calcium 6.5 L (8.4-10.2) mg/dL Calcium panel 10/16/17 Range/Units 04:29 Calcium 6.5 L (8.4-10.2) mg/dL Pituitary panel 10/16/17 Range/Units 04:29 Sodium 141 D (137-145) mmol/L Potassium 4.0 (3.6-5.0) mmol/L Chloride 105.5 (98-107) mmol/L Carbon Dioxide 19 L D (22-30) mmol/L BUN 40 H (7-17) mg/dL Creatinine 1.4 H (0.7-1.2) mg/dL Glucose 276 H (65-100) mg/dL Calcium 6.5 L (8.4-10.2) mg/dL Adrenal panel 10/16/17 Range/Units 04:29 Sodium 141 D (137-145) mmol/L Potassium 4.0 (3.6-5.0) mmol/L Chloride 105.5 (98-107) mmol/L Carbon Dioxide 19 L D (22-30) mmol/L BUN 40 H (7-17) mg/dL Creatinine 1.4 H (0.7-1.2) mg/dL Glucose 276 H (65-100) mg/dL Calcium 6.5 L (8.4-10.2) mg/dL
[2017-10-16 22:03] LABS: Hematocrit 31.2 % (30.3-42.9); Hemoglobin 10.1 gm/dl (10.1-14.3); Mean Corpuscular HGB Conc 32 % (30-34); Mean Corpuscular Hemoglobin 26 pg (28-32); Mean Corpuscular Volume 81 fl (79-97); Platelet Count 242 K/mm3 (140-440); Red Blood Count 3.84 M/mm3 (3.65-5.03); Red Cell Distribution Width 13.5 % (13.2-15.2)
[2017-10-17] MEDS: NACL 0.9% 1000 ML 1,000 ML IV SCH ×3 (00:06→22:29)
[2017-10-17] MEDS: HEPARIN SUB-Q SCH ×3 (00:07→22:17)
[2017-10-17] MEDS: PEPCID IV SCH ×3 (00:10→22:16)
[2017-10-17] MEDS: ZOSYN/NS 2.25 GM/50ML 2.25 GM/50 ML BAG IV SCH ×5 (00:17→22:49)
[2017-10-17] MEDS: LANTUS SUB-Q SCH ×2 (00:25→22:18)
[2017-10-17] MEDS: DILAUDID IV PRN ×4 (01:35→20:07)
[2017-10-17] MEDS: HumaLOG SUB-Q SCH ×3 (11:38→22:15)
--- NOTE | 2017-10-17 13:45 | Progress Note ---
Subjective Patient Reports: Positive: feels better, still having pain, no flatus, no bowel movement Narrative: Feels better ,no BM . abd soft will sheck with KUB , NPO Objective Vital Signs - 12hr 10/17/17 10/17/17 10/17/17 05:04 05:21 07:24 Temperature 97.7 F Pulse Rate 96 H 96 H Respiratory 20 20 Rate Blood Pressure 121/63 Blood Pressure [Left] O2 Sat by Pulse 98 97 Oximetry 10/17/17 10/17/17 07:25 12:00 Temperature 99.6 F 99.1 F Pulse Rate 102 H 95 H Respiratory 20 20 Rate Blood Pressure Blood Pressure 130/59 124/62 [Left] O2 Sat by Pulse 97 97 Oximetry - Labs 10/16/17 21:50 10/16/17 04:29
[2017-10-17 17:13] LABS: BUN/Creatinine Ratio 29; Blood Urea Nitrogen 29 mg/dL (7-17); Calcium 7.4 mg/dL (8.4-10.2); Hemolysis Index 0
--- NOTE | 2017-10-17 17:55 | Progress Note ---
Assessment and Plan Assessment and plan: --Continue postop care, nothing by mouth, IV fluids, NG tube placement IV antibiotics and supportive care --Small bowel obstruction ; evaluated by surgery Patient with incarcerated incisional hernia, underwent exploratory laparotomy with excision of scar tissue, lysis of very extensive adhesions --Intractable nausea and vomiting; improved --Acute kidney injury; gentle hydration closely monitored function Avoid nephrotoxins --Hyponatremia; continue IV fluids and closely monitor levels --Leukocytosis; continue empiric antibiotics and follow cultures --DVT prophylaxis SCDs, no pharmacologic anticoagulation per surgery patient is postop --Hypertension; moderate control continue current antihypertensives and when necessary --Full CODE STATUS Personal monitor the patient and adjust management as needed History Interval history: Patient seen and examined medical records reviewed Did not pass flatus, no bowel movement Nothing by mouth, supportive care Vital signs reviewed Hospitalist Physical - Constitutional Vitals: Temp Pulse Resp BP Pulse Ox 99.4 F 103 H 20 109/78 97 10/17/17 15:45 10/17/17 15:45 10/17/17 15:45 10/17/17 15:45 10/17/17 15:45 General appearance: Present: no acute distress, well-nourished, obese - EENT Eyes: Present: PERRL, EOM intact - Neck Neck: Present: supple, normal ROM - Respiratory Respiratory effort: normal Respiratory: bilateral: diminished, negative: rales, rhonchi, wheezing - Cardiovascular Rhythm: regular Heart Sounds: Present: S1 & S2 - Extremities Extremities: no ischemia, No edema - Abdominal General gastrointestinal: soft, non-tender, non-distended, absent bowel sounds - Integumentary Integumentary: Present: clear, warm - Psychiatric Psychiatric: appropriate mood/affect - Neurologic Neurologic: moves all extremities Results - Labs CBC & Chem 7: 10/16/17 21:50 10/17/17 16:42 Labs: Laboratory Last Values WBC 18.8 K/mm3 (4.5-11.0) H 10/16/17 21:50 RBC 3.84 M/mm3 (3.65-5.03) 10/16/17 21:50 Hgb 10.1 gm/dl (10.1-14.3) 10/16/17 21:50 Hct 31.2 % (30.3-42.9) 10/16/17 21:50 MCV 81 fl (79-97) 10/16/17 21:50 MCH 26 pg (28-32) L 10/16/17 21:50 MCHC 32 % (30-34) 10/16/17 21:50 RDW 13.5 % (13.2-15.2) 10/16/17 21:50 Plt Count 242 K/mm3 (140-440) 10/16/17 21:50 Lymph % (Auto) 13.5 % (13.4-35.0) 10/14/17 17:37 [place] % (Auto) 10.9 % (0.0-7.3) H 10/14/17 17:37 Eos % (Auto) 0.5 % (0.0-4.3) 10/14/17 17:37 Baso % (Auto) 0.4 % (0.0-1.8) 10/14/17 17:37 Lymph # 1.7 K/mm3 (1.2-5.4) 10/14/17 17:37 [place] # 1.4 K/mm3 (0.0-0.8) H 10/14/17 17:37 Eos # 0.1 K/mm3 (0.0-0.4) 10/14/17 17:37 Baso # 0.0 K/mm3 (0.0-0.1) 10/14/17 17:37 Add Manual Diff Complete 10/16/17 04:29 Total Counted 100 10/16/17 04:29 Seg Neutrophils % 74.7 % (40.0-70.0) H 10/14/17 17:37 Seg Neuts % (Manual) 25.0 % (40.0-70.0) L 10/16/17 04:29 Band Neutrophils % 51.0 % 10/16/17 04:29 Lymphocytes % (Manual) 11.0 % (13.4-35.0) L 10/16/17 04:29 Reactive Lymphs % (Man) 0 % 10/16/17 04:29 Monocytes % (Manual) 5.0 % (0.0-7.3) 10/16/17 04:29 Eosinophils % (Manual) 0 % (0.0-4.3) 10/16/17 04:29 Basophils % (Manual) 1.0 % (0.0-1.8) 10/16/17 04:29 Metamyelocytes % 7.0 % 10/16/17 04:29 Myelocytes % 0 % 10/16/17 04:29 Promyelocytes % 0 % 10/16/17 04:29 Blast Cells % 0 % 10/16/17 04:29 Nucleated RBC % Not Reportable 10/16/17 04:29 Seg Neutrophils # 9.4 K/mm3 (1.8-7.7) H 10/14/17 17:37 Seg Neutrophils # Man 3.4 K/mm3 (1.8-7.7) 10/16/17 04:29 Band Neutrophils # 6.8 K/mm3 10/16/17 04:29 Lymphocytes # (Manual) 1.5 K/mm3 (1.2-5.4) 10/16/17 04:29 Abs React Lymphs (Man) 0.0 K/mm3 10/16/17 04:29 Monocytes # (Manual) 0.7 K/mm3 (0.0-0.8) 10/16/17 04:29 Eosinophils # (Manual) 0.0 K/mm3 (0.0-0.4) 10/16/17 04:29 Basophils # (Manual) 0.1 K/mm3 (0.0-0.1) 10/16/17 04:29 Metamyelocytes # 0.9 K/mm3 10/16/17 04:29 Myelocytes # 0.0 K/mm3 10/16/17 04:29 Promyelocytes # 0.0 K/mm3 10/16/17 04:29 Blast Cells # 0.0 K/mm3 10/16/17 04:29 WBC Morphology Not Reportable 10/16/17 04:29 Hypersegmented Neuts Not Reportable 10/16/17 04:29 Hyposegmented Neuts Not Reportable 10/16/17 04:29 Hypogranular Neuts Not Reportable 10/16/17 04:29 Smudge Cells Not Reportable 10/16/17 04:29 Toxic Granulation Not Reportable 10/16/17 04:29 Toxic Vacuolation Not Reportable 10/16/17 04:29 Dohle Bodies Not Reportable 10/16/17 04:29 Pelger-Huet Anomaly Not Reportable 10/16/17 04:29 Savi Rods Not Reportable 10/16/17 04:29 Platelet Estimate Appears normal 10/16/17 04:29 Clumped Platelets Not Reportable 10/16/17 04:29 Plt Clumps, EDTA Not Reportable 10/16/17 04:29 Large Platelets Not Reportable 10/16/17 04:29 Giant Platelets Not Reportable 10/16/17 04:29 Platelet Satelliting Not Reportable 10/16/17 04:29 Plt Morphology Comment Not Reportable 10/16/17 04:29 RBC Morphology Not Reportable 10/16/17 04:29 Dimorphic RBCs Not Reportable 10/16/17 04:29 Polychromasia Few 10/16/17 04:29 Hypochromasia Not Reportable 10/16/17 04:29 Poikilocytosis Not Reportable 10/16/17 04:29 Anisocytosis Not Reportable 10/16/17 04:29 Microcytosis Not Reportable 10/16/17 04:29 Macrocytosis Not Reportable 10/16/17 04:29 Spherocytes Not Reportable 10/16/17 04:29 Pappenheimer Bodies Not Reportable 10/16/17 04:29 Sickle Cells Not Reportable 10/16/17 04:29 Target Cells Not Reportable 10/16/17 04:29 Tear Drop Cells Not Reportable 10/16/17 04:29 Ovalocytes Few 10/16/17 04:29 Helmet Cells Not Reportable 10/16/17 04:29 Ramirez-[employer] Bodies Not Reportable 10/16/17 04:29 [place] Rings Not Reportable 10/16/17 04:29 [place] Cells Few 10/16/17 04:29 Bite Cells Not Reportable 10/16/17 04:29 Crenated Cell Not Reportable 10/16/17 04:29 Elliptocytes Not Reportable 10/16/17 04:29 Acanthocytes (Spur) Not Reportable 10/16/17 04:29 Rouleaux Not Reportable 10/16/17 04:29 Hemoglobin C Crystals Not Reportable 10/16/17 04:29 Schistocytes Not Reportable 10/16/17 04:29 Malaria parasites Not Reportable 10/16/17 04:29 Miguel Bodies Not Reportable 10/16/17 04:29 Hem Pathologist Commnt No 10/16/17 04:29 Sodium 148 mmol/L (137-145) H 10/17/17 16:42 Potassium 3.5 mmol/L (3.6-5.0) L 10/17/17 16:42 Chloride 112.2 mmol/L (98-107) H 10/17/17 16:42 Carbon Dioxide 20 mmol/L (22-30) L 10/17/17 16:42 Anion Gap 19 mmol/L 10/17/17 16:42 BUN 29 mg/dL (7-17) H 10/17/17 16:42 Creatinine 1.0 mg/dL (0.7-1.2) 10/17/17 16:42 Estimated GFR > 60 ml/min 10/17/17 16:42 BUN/Creatinine Ratio 29 % 10/17/17 16:42 Glucose 130 mg/dL (65-100) H 10/17/17 16:42 POC Glucose 144 (70-105) H 10/17/17 11:16 Hemoglobin A1c 11.7 % (4-6) H 10/15/17 04:51 Lactic Acid 1.90 mmol/L (0.7-2.0) 10/14/17 17:37 Calcium 7.4 mg/dL (8.4-10.2) L 10/17/17 16:42 Total Bilirubin 0.80 mg/dL (0.1-1.2) 10/14/17 17:37 Direct Bilirubin 0.3 mg/dL (0-0.2) H 10/14/17 17:37 Indirect Bilirubin 0.5 mg/dL 10/14/17 17:37 AST 16 units/L (5-40) 10/14/17 17:37 ALT 24 units/L (7-56) 10/14/17 17:37 Alkaline Phosphatase 82 units/L (35-129) 10/14/17 17:37 Total Protein 7.4 g/dL (6.3-8.2) 10/14/17 17:37 Albumin 3.5 g/dL (3.9-5) L 10/14/17 17:37 Albumin/Globulin Ratio 0.9 % 10/14/17 17:37 Lipase 23 units/L (13-60) 10/14/17 17:37 Urine Color Yellow (Yellow) 10/14/17 22:07 Urine Turbidity Clear (Clear) 10/14/17 22:07 Urine pH 6.0 (5.0-7.0) 10/14/17 22:07 Ur Specific [place] 1.016 (1.003-1.030) 10/14/17 22:07 Urine Protein <15 mg/dl mg/dL (Negative) 10/14/17 22:07 Urine Glucose (UA) >=500 mg/dL (Negative) 10/14/17 22:07 Urine Ketones Neg mg/dL (Negative) 10/14/17 22:07 Urine Blood Neg (Negative) 10/14/17 22:07 Urine Nitrite Neg (Negative) 10/14/17 22:07 Urine Bilirubin Neg (Negative) 10/14/17 22:07 Urine Urobilinogen < 2.0 mg/dL (<2.0) 10/14/17 22:07 Ur Leukocyte Esterase Neg (Negative) 10/14/17 22:07 Urine WBC (Auto) < 1.0 /HPF (0.0-6.0) 10/14/17 22:07 Urine RBC (Auto) 2.0 /HPF (0.0-6.0) 10/14/17 22:07 U Epithel Cells (Auto) < 1.0 /HPF (0-13.0) 10/14/17 22:07 Urine Mucus Few /HPF 10/14/17 22:07 Blood Type O POSITIVE 10/15/17 14:00 Antibody Screen Positive 10/15/17 14:00 Antibody Identification Anti-K 10/15/17 14:00 Crossmatch See Detail 10/15/17 14:00
[2017-10-18] MEDS: HumaLOG SUB-Q SCH ×5 (02:35→23:32)
[2017-10-18] MEDS: DILAUDID IV PRN ×2 (05:43→12:58)
[2017-10-18] MEDS: ZOFRAN IV PRN ×2 (05:43→12:59)
[2017-10-18] MEDS: NACL 0.9% 1000 ML 1,000 ML IV SCH (05:48)
[2017-10-18] MEDS: ZOSYN/NS 2.25 GM/50ML 2.25 GM/50 ML BAG IV SCH ×4 (05:51→23:40)
[2017-10-18] MEDS ORDERED: NACL 0.45% 1000 ML 1,000 ML IV SCH (10:00)
[2017-10-18] MEDS: PEPCID IV SCH ×2 (10:58→21:52)
[2017-10-18] MEDS: HEPARIN SUB-Q SCH ×2 (10:58→21:42)
--- NOTE | 2017-10-18 13:03 | Progress Note ---
Assessment and Plan Assessment and plan: --Continue postop care, nothing by mouth, IV fluids, NG tube placement , intermittent suction IV antibiotics and supportive care --Small bowel obstruction ; evaluated by surgery Patient with incarcerated incisional hernia, underwent exploratory laparotomy with excision of scar tissue, lysis of very extensive adhesions --Intractable nausea and vomiting; improved --Acute kidney injury; gentle hydration closely monitored function Avoid nephrotoxins --Hyponatremia; continue IV fluids and closely monitor levels --Leukocytosis; continue empiric antibiotics and follow cultures --DVT prophylaxis SCDs, no pharmacologic anticoagulation per surgery patient is postop --Hypertension; moderate control continue current antihypertensives and when necessary --Full CODE STATUS Out of bed to chair, physical therapy as tolerated Incentive spirometry History Interval history: Patient seen and examined medical records reviewed Patient did not have flatus, no bowel movement Complains of some pain, one somewhat Alert awake responding appropriately Vital signs reviewed Hospitalist Physical - Constitutional Vitals: Temp Pulse Resp BP Pulse Ox 99.1 F 102 H 18 101/54 98 10/18/17 07:49 10/18/17 07:50 10/18/17 07:49 10/18/17 07:49 10/18/17 07:50 General appearance: Present: no acute distress, well-nourished, obese - EENT Eyes: Present: PERRL, EOM intact - Neck Neck: Present: supple, normal ROM - Respiratory Respiratory effort: normal Respiratory: bilateral: diminished, negative: rales, rhonchi, wheezing - Cardiovascular Rhythm: regular Heart Sounds: Present: S1 & S2 - Extremities Extremities: no ischemia, No edema - Abdominal General gastrointestinal: soft, tender, non-distended, absent bowel sounds - Integumentary Integumentary: Present: clear, warm - Psychiatric Psychiatric: appropriate mood/affect, cooperative - Neurologic Neurologic: moves all extremities Results - Labs CBC & Chem 7: 10/16/17 21:50 10/17/17 16:42 Labs: Laboratory Last Values WBC 18.8 K/mm3 (4.5-11.0) H 10/16/17 21:50 RBC 3.84 M/mm3 (3.65-5.03) 10/16/17 21:50 Hgb 10.1 gm/dl (10.1-14.3) 10/16/17 21:50 Hct 31.2 % (30.3-42.9) 10/16/17 21:50 MCV 81 fl (79-97) 10/16/17 21:50 MCH 26 pg (28-32) L 10/16/17 21:50 MCHC 32 % (30-34) 10/16/17 21:50 RDW 13.5 % (13.2-15.2) 10/16/17 21:50 Plt Count 242 K/mm3 (140-440) 10/16/17 21:50 Lymph % (Auto) 13.5 % (13.4-35.0) 10/14/17 17:37 [place] % (Auto) 10.9 % (0.0-7.3) H 10/14/17 17:37 Eos % (Auto) 0.5 % (0.0-4.3) 10/14/17 17:37 Baso % (Auto) 0.4 % (0.0-1.8) 10/14/17 17:37 Lymph # 1.7 K/mm3 (1.2-5.4) 10/14/17 17:37 [place] # 1.4 K/mm3 (0.0-0.8) H 10/14/17 17:37 Eos # 0.1 K/mm3 (0.0-0.4) 10/14/17 17:37 Baso # 0.0 K/mm3 (0.0-0.1) 10/14/17 17:37 Add Manual Diff Complete 10/16/17 04:29 Total Counted 100 10/16/17 04:29 Seg Neutrophils % 74.7 % (40.0-70.0) H 10/14/17 17:37 Seg Neuts % (Manual) 25.0 % (40.0-70.0) L 10/16/17 04:29 Band Neutrophils % 51.0 % 10/16/17 04:29 Lymphocytes % (Manual) 11.0 % (13.4-35.0) L 10/16/17 04:29 Reactive Lymphs % (Man) 0 % 10/16/17 04:29 Monocytes % (Manual) 5.0 % (0.0-7.3) 10/16/17 04:29 Eosinophils % (Manual) 0 % (0.0-4.3) 10/16/17 04:29 Basophils % (Manual) 1.0 % (0.0-1.8) 10/16/17 04:29 Metamyelocytes % 7.0 % 10/16/17 04:29 Myelocytes % 0 % 10/16/17 04:29 Promyelocytes % 0 % 10/16/17 04:29 Blast Cells % 0 % 10/16/17 04:29 Nucleated RBC % Not Reportable 10/16/17 04:29 Seg Neutrophils # 9.4 K/mm3 (1.8-7.7) H 10/14/17 17:37 Seg Neutrophils # Man 3.4 K/mm3 (1.8-7.7) 10/16/17 04:29 Band Neutrophils # 6.8 K/mm3 10/16/17 04:29 Lymphocytes # (Manual) 1.5 K/mm3 (1.2-5.4) 10/16/17 04:29 Abs React Lymphs (Man) 0.0 K/mm3 10/16/17 04:29 Monocytes # (Manual) 0.7 K/mm3 (0.0-0.8) 10/16/17 04:29 Eosinophils # (Manual) 0.0 K/mm3 (0.0-0.4) 10/16/17 04:29 Basophils # (Manual) 0.1 K/mm3 (0.0-0.1) 10/16/17 04:29 Metamyelocytes # 0.9 K/mm3 10/16/17 04:29 Myelocytes # 0.0 K/mm3 10/16/17 04:29 Promyelocytes # 0.0 K/mm3 10/16/17 04:29 Blast Cells # 0.0 K/mm3 10/16/17 04:29 WBC Morphology Not Reportable 10/16/17 04:29 Hypersegmented Neuts Not Reportable 10/16/17 04:29 Hyposegmented Neuts Not Reportable 10/16/17 04:29 Hypogranular Neuts Not Reportable 10/16/17 04:29 Smudge Cells Not Reportable 10/16/17 04:29 Toxic Granulation Not Reportable 10/16/17 04:29 Toxic Vacuolation Not Reportable 10/16/17 04:29 Dohle Bodies Not Reportable 10/16/17 04:29 Pelger-Huet Anomaly Not Reportable 10/16/17 04:29 Savi Rods Not Reportable 10/16/17 04:29 Platelet Estimate Appears normal 10/16/17 04:29 Clumped Platelets Not Reportable 10/16/17 04:29 Plt Clumps, EDTA Not Reportable 10/16/17 04:29 Large Platelets Not Reportable 10/16/17 04:29 Giant Platelets Not Reportable 10/16/17 04:29 Platelet Satelliting Not Reportable 10/16/17 04:29 Plt Morphology Comment Not Reportable 10/16/17 04:29 RBC Morphology Not Reportable 10/16/17 04:29 Dimorphic RBCs Not Reportable 10/16/17 04:29 Polychromasia Few 10/16/17 04:29 Hypochromasia Not Reportable 10/16/17 04:29 Poikilocytosis Not Reportable 10/16/17 04:29 Anisocytosis Not Reportable 10/16/17 04:29 Microcytosis Not Reportable 10/16/17 04:29 Macrocytosis Not Reportable 10/16/17 04:29 Spherocytes Not Reportable 10/16/17 04:29 Pappenheimer Bodies Not Reportable 10/16/17 04:29 Sickle Cells Not Reportable 10/16/17 04:29 Target Cells Not Reportable 10/16/17 04:29 Tear Drop Cells Not Reportable 10/16/17 04:29 Ovalocytes Few 10/16/17 04:29 Helmet Cells Not Reportable 10/16/17 04:29 [place] Bodies Not Reportable 10/16/17 04:29 [place] Rings Not Reportable 10/16/17 04:29 Lavon Cells Few 10/16/17 04:29 Bite Cells Not Reportable 10/16/17 04:29 Crenated Cell Not Reportable 10/16/17 04:29 Elliptocytes Not Reportable 10/16/17 04:29 Acanthocytes (Spur) Not Reportable 10/16/17 04:29 Rouleaux Not Reportable 10/16/17 04:29 Hemoglobin C Crystals Not Reportable 10/16/17 04:29 Schistocytes Not Reportable 10/16/17 04:29 Malaria parasites Not Reportable 10/16/17 04:29 Miguel Bodies Not Reportable 10/16/17 04:29 Hem Pathologist Commnt No 10/16/17 04:29 Sodium 148 mmol/L (137-145) H 10/17/17 16:42 Potassium 3.5 mmol/L (3.6-5.0) L 10/17/17 16:42 Chloride 112.2 mmol/L (98-107) H 10/17/17 16:42 Carbon Dioxide 20 mmol/L (22-30) L 10/17/17 16:42 Anion Gap 19 mmol/L 10/17/17 16:42 BUN 29 mg/dL (7-17) H 10/17/17 16:42 Creatinine 1.0 mg/dL (0.7-1.2) 10/17/17 16:42 Estimated GFR > 60 ml/min 10/17/17 16:42 BUN/Creatinine Ratio 29 % 10/17/17 16:42 Glucose 130 mg/dL (65-100) H 10/17/17 16:42 POC Glucose 142 (70-105) H 10/18/17 06:20 Hemoglobin A1c 11.7 % (4-6) H 10/15/17 04:51 Lactic Acid 1.90 mmol/L (0.7-2.0) 10/14/17 17:37 Calcium 7.4 mg/dL (8.4-10.2) L 10/17/17 16:42 Total Bilirubin 0.80 mg/dL (0.1-1.2) 10/14/17 17:37 Direct Bilirubin 0.3 mg/dL (0-0.2) H 10/14/17 17:37 Indirect Bilirubin 0.5 mg/dL 10/14/17 17:37 AST 16 units/L (5-40) 10/14/17 17:37 ALT 24 units/L (7-56) 10/14/17 17:37 Alkaline Phosphatase 82 units/L (35-129) 10/14/17 17:37 Total Protein 7.4 g/dL (6.3-8.2) 10/14/17 17:37 Albumin 3.5 g/dL (3.9-5) L 10/14/17 17:37 Albumin/Globulin Ratio 0.9 % 10/14/17 17:37 Lipase 23 units/L (13-60) 10/14/17 17:37 Urine Color Yellow (Yellow) 10/14/17 22:07 Urine Turbidity Clear (Clear) 10/14/17 22:07 Urine pH 6.0 (5.0-7.0) 10/14/17 22:07 Ur Specific [place] 1.016 (1.003-1.030) 10/14/17 22:07 Urine Protein <15 mg/dl mg/dL (Negative) 10/14/17 22:07 Urine Glucose (UA) >=500 mg/dL (Negative) 10/14/17 22:07 Urine Ketones Neg mg/dL (Negative) 10/14/17 22:07 Urine Blood Neg (Negative) 10/14/17 22:07 Urine Nitrite Neg (Negative) 10/14/17 22:07 Urine Bilirubin Neg (Negative) 10/14/17 22:07 Urine Urobilinogen < 2.0 mg/dL (<2.0) 10/14/17 22:07 Ur Leukocyte Esterase Neg (Negative) 10/14/17 22:07 Urine WBC (Auto) < 1.0 /HPF (0.0-6.0) 10/14/17 22:07 Urine RBC (Auto) 2.0 /HPF (0.0-6.0) 10/14/17 22:07 U Epithel Cells (Auto) < 1.0 /HPF (0-13.0) 10/14/17 22:07 Urine Mucus Few /HPF 10/14/17 22:07 Blood Type O POSITIVE 10/15/17 14:00 Antibody Screen Positive 10/15/17 14:00 Antibody Identification Anti-K 10/15/17 14:00 Crossmatch See Detail 10/15/17 14:00
[2017-10-18] MEDS ORDERED: MILK OF MAGNESIA PO ONE (20:39)
[2017-10-18] MEDS: LANTUS SUB-Q SCH (23:40)
[2017-10-19] MEDS: D5W/0.45% NACL/KCL 20 MEQ 20 MEQ/1,000 ML BAG IV SCH ×2 (02:40→13:09)
[2017-10-19] MEDS: ZOSYN/NS 2.25 GM/50ML 2.25 GM/50 ML BAG IV SCH (06:28)
[2017-10-19] MEDS: HumaLOG SUB-Q SCH ×4 (06:37→18:18)
[2017-10-19 06:42] LABS: BUN/Creatinine Ratio 18; Blood Urea Nitrogen 14 mg/dL (7-17); Calcium 8.3 mg/dL (8.4-10.2); Hemolysis Index 1
[2017-10-19] MEDS: DILAUDID IV PRN ×2 (08:03→20:14)
[2017-10-19 08:05] LABS: BUN/Creatinine Ratio 16; Blood Urea Nitrogen 13 mg/dL (7-17); Calcium 8.4 mg/dL (8.4-10.2); Hemolysis Index 1
[2017-10-19] MEDS: HEPARIN SUB-Q SCH ×2 (10:21→22:03)
[2017-10-19] MEDS: PEPCID IV SCH ×2 (10:21→21:59)
[2017-10-19] MEDS ORDERED: KCL 10MEQ/100ML 10 MEQ/100 ML BAG IV SCH (13:00)
[2017-10-19] MEDS: ZOSYN/NS 4.5GM/100ML 4.5 GM/100 ML VIAL IV SCH ×2 (13:09→21:59)
--- NOTE | 2017-10-19 14:05 | Consultation ---
History of Present Illness - Reason for Consult Consult date: 10/19/17 hypernatremia, other (hypophosphatemia) - History of Present Illness Mrs. Metcalf is a 77 year old female with history of abdominal hernia repair in 2014 who presented to the ED with a 5 days history of 10/10, constang abdominal pain associated with nausea and vomiting. CT obtained and notable for partial bowel obstruction. She was taken to the OR on October 15; she is s/p exlap with lysis of adhesions. At admission, patient was noted to have JONH secondary to volume depletion. Renal function has improved. However, patient now with electrolyte derangements prompting nephrology consultation. Past History Past Medical History: diabetes, hypertension, other (abdominal hernia) Past Surgical History: hernia repair Social history: other (she denies tobacco, alcohol or illicit drug use.) Family history: other (reviewed and noncontributory) Medications and Allergies Allergies Allergy/AdvReac Type Severity Reaction Status Date / Time acetaminophen [From Percocet] AdvReac Severe Unknown Verified 08/05/14 12:14 oxycodone HCl [From Percocet] AdvReac Severe Unknown Verified 08/05/14 12:14 LEVAQUIN Allergy Rash Uncoded 07/22/14 07:53 QUININE Allergy Rash Uncoded 07/22/14 07:52 Home Medications Medication Instructions Recorded Confirmed Last Taken Type Lisinopril/Hydrochlorothiazide 1 tab PO QDAY 08/13/14 10/15/17 Unknown History [Zestoretic 20-12.5 mg] Aspirin [Lo-Dose Aspirin EC] 81 mg PO DAILY 10/15/17 10/15/17 Unknown History metFORMIN [Glucophage] 1,000 mg PO BID 10/15/17 10/15/17 Unknown History Active Meds: Active Medications Dextrose (D50w (25gm) Syringe) 50 ml IV PRN PRN PRN Reason: Hypoglycemia Famotidine (Pepcid) 10 mg IV BID [facility] Last Admin: 10/19/17 10:21 Dose: 10 mg Heparin Sodium (Porcine) (Heparin) 5,000 unit SUB-Q Q12HR [facility] Last Admin: 10/19/17 10:21 Dose: 5,000 unit Hydralazine HCl (Apresoline) 10 mg IV Q6H PRN PRN Reason: Blood Pressure Hydromorphone HCl (Dilaudid) 0.5 mg IV Q3H PRN PRN Reason: Pain , Severe (7-10) Last Admin: 10/19/17 08:03 Dose: 0.5 mg Potassium Chloride/Dextrose/Sod Cl (D5w/0.45% Nacl/Kcl 20 Meq) 20 meq in 1,000 mls @ 100 mls/hr IV DIRECT SEBAS Last Admin: 10/19/17 13:09 Dose: 100 mls/hr Piperacillin Sod/Tazobactam Sod (Zosyn/Ns 4.5gm/100ml) 4.5 gm in 100 mls @ 200 mls/hr IV Q8HR [facility] Last Admin: 10/19/17 13:09 Dose: 200 mls/hr Potassium Chloride (Kcl 10meq/100ml) 10 meq in 100 mls @ 100 mls/hr IV Q1H [facility] Stop: 10/19/17 16:59 Insulin Glargine (Lantus) 20 units SUB-Q QHS [facility] Last Admin: 10/18/17 23:40 Dose: 20 units Insulin Human Lispro (Humalog) 0 unit SUB-Q Q6HR [facility]; Protocol Last Admin: 10/19/17 13:00 Dose: 2 unit Ondansetron HCl (Zofran) 4 mg IV Q8H PRN PRN Reason: Nausea And Vomiting Last Admin: 10/18/17 12:59 Dose: 4 mg Sodium Chloride (Sodium Chloride Flush Syringe 10 Ml) 10 ml IV PRN PRN PRN Reason: LINE FLUSH Review of Systems All systems: negative Exam - Vital Signs Vital signs: Vital Signs Temp Pulse Resp BP Pulse Ox 98.3 F 82 16 108/50 96 10/14/17 16:51 10/14/17 16:51 10/14/17 16:51 10/14/17 16:51 10/14/17 16:51 - General Appearance General appearance: well-developed, well-nourished EENT: ATNC, other (NGT in place) Respiratory: Decreased Breath Sounds Heart: regular, S1S2 Gastrointestinal: Present: other (hypoactive bowel sounds) Integumentary: warm and dry Musculoskeletal: Present: other (no edema) Psychiatric: cooperative Results - Lab Results 10/16/17 21:50 10/19/17 07:31 Most recent lab results Calcium 8.4 mg/dL (8.4-10.2) 10/19/17 07:31 Phosphorus 0.30 mg/dL (2.5-4.5) L* 10/19/17 05:35 Magnesium 2.70 mg/dL (1.7-2.3) H 10/19/17 05:35 Assessment and Plan Impression: * Hypernatremia secondary to dehydration * Hypophosphatemia * Hypokalemia * Leukocytosis * Type II DM Plan: * Continue IVF - change to 1/2 NS * Will order Kphos 30mmol now and prn * Hold KCl replacement; will order Kphos instead as above * Repeat BMP and phos this evening * Replete lytes prn * Strict I/O * Glycemic control per primary team * Check AM labs * Changes discussed with RN and pharmacy
--- NOTE | 2017-10-19 15:01 | Progress Note ---
Subjective Patient Reports: Positive: feels better, still having pain, pain is less, flatus , bowel movement Narrative: Pt says she passed flatus , and a small BM , will check with KUB in AM, NPO Objective Vital Signs - 12hr 10/19/17 10/19/17 10/19/17 03:50 08:13 08:33 Temperature 98.6 F 98.2 F Pulse Rate 101 H 101 H Respiratory 24 18 18 Rate Blood Pressure 158/72 146/70 O2 Sat by Pulse 97 98 Oximetry - Labs 10/16/17 21:50 10/19/17 07:31 Diabetes panel 10/19/17 10/19/17 Range/Units 05:35 07:31 Sodium 159 H D 159 H (137-145) mmol/L Potassium 3.3 L 3.3 L (3.6-5.0) mmol/L Chloride 123.1 H 123.7 H (98-107) mmol/L Carbon Dioxide 20 L 23 (22-30) mmol/L BUN 14 13 (7-17) mg/dL Creatinine 0.8 0.8 (0.7-1.2) mg/dL Glucose 214 H 206 H (65-100) mg/dL Calcium 8.3 L 8.4 (8.4-10.2) mg/dL Calcium panel 10/19/17 10/19/17 Range/Units 05:35 07:31 Calcium 8.3 L 8.4 (8.4-10.2) mg/dL Phosphorus 0.30 L* (2.5-4.5) mg/dL Pituitary panel 10/19/17 10/19/17 Range/Units 05:35 07:31 Sodium 159 H D 159 H (137-145) mmol/L Potassium 3.3 L 3.3 L (3.6-5.0) mmol/L Chloride 123.1 H 123.7 H (98-107) mmol/L Carbon Dioxide 20 L 23 (22-30) mmol/L BUN 14 13 (7-17) mg/dL Creatinine 0.8 0.8 (0.7-1.2) mg/dL Glucose 214 H 206 H (65-100) mg/dL Calcium 8.3 L 8.4 (8.4-10.2) mg/dL Adrenal panel 05/11/18 05/11/18 Range/Units 05:35 07:31 Sodium 159 H D 159 H (137-145) mmol/L Potassium 3.3 L 3.3 L (3.6-5.0) mmol/L Chloride 123.1 H 123.7 H (98-107) mmol/L Carbon Dioxide 20 L 23 (22-30) mmol/L BUN 14 13 (7-17) mg/dL Creatinine 0.8 0.8 (0.7-1.2) mg/dL Glucose 214 H 206 H (65-100) mg/dL Calcium 8.3 L 8.4 (8.4-10.2) mg/dL
[2017-10-19] MEDS ORDERED: KPHOS 30 MMOL in NACL 0.9% 500 ML 500 ML IV ONE (15:05)
--- NOTE | 2017-10-19 16:31 | Progress Note ---
Assessment and Plan Assessment and plan: 77-year-old -[place] female was admitted for small bowel obstruction -Continue postop care, nothing by mouth, IV fluids, NG tube placement , intermittent suction IV antibiotics and supportive care. She ate banana this morning and advised her to be NPO but she said she is hungry. Small bowel obstruction ; evaluated by surgery - Patient with incarcerated incisional hernia, underwent exploratory laparotomy with excision of scar tissue, lysis of very extensive adhesions Intractable nausea and vomiting; improved Acute kidney injury; gentle hydration closely monitored function Avoid nephrotoxins, resolved Hypernatremia, hypophosphatemia, hypokalemia - Replete potassium, nephrology consulted --Leukocytosis; continue empiric Zosyn --DVT prophylaxis SCDs, no pharmacologic anticoagulation per surgery patient is postop --Hypertension; on hydralazine PRN Diabetes mellitus with hyperglycemia - On sliding scale insulin --Full CODE STATUS Out of bed to chair, physical therapy as tolerated Incentive spirometry History Interval history: Patient was seen and evaluated this morning, patient states she passed gas, but didn't have stool, patient said she ate banana despite she is supposed to be NPO. She denied any pain after that. she has NG tube in place. Hospitalist Physical - Physical exam Narrative exam: Not in cardiopulmonary distress. NG tube in place. The patient is obese. Vital signs as documented. Head exam is unremarkable. No scleral icterus . Neck is without jugular venous distension, thyromegaly, or carotid bruits. Lungs are clear to auscultation. Cardiac exam reveals regular rate and Rhythm. First and second heart sounds normal. No murmurs, rubs or gallops. Abdominal exam reveals normal bowel sounds, clean dressing, non tender, soft. Extremities are nonedematous and both femoral and pedal pulses are normal. 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 No focal weakness. - Constitutional Vitals: Temp Pulse Resp BP Pulse Ox 98.2 F 101 H 18 146/70 100 10/19/17 08:13 10/19/17 08:13 10/19/17 08:33 10/19/17 08:13 10/19/17 10:00 General appearance: Present: no acute distress, well-nourished, obese Results - Labs CBC & Chem 7: 10/16/17 21:50 10/19/17 07:31 Labs: Laboratory Last Values WBC 18.8 K/mm3 (4.5-11.0) H 10/16/17 21:50 RBC 3.84 M/mm3 (3.65-5.03) 10/16/17 21:50 Hgb 10.1 gm/dl (10.1-14.3) 10/16/17 21:50 Hct 31.2 % (30.3-42.9) 10/16/17 21:50 MCV 81 fl (79-97) 10/16/17 21:50 MCH 26 pg (28-32) L 10/16/17 21:50 MCHC 32 % (30-34) 10/16/17 21:50 RDW 13.5 % (13.2-15.2) 10/16/17 21:50 Plt Count 242 K/mm3 (140-440) 10/16/17 21:50 Lymph % (Auto) 13.5 % (13.4-35.0) 10/14/17 17:37 [place] % (Auto) 10.9 % (0.0-7.3) H 10/14/17 17:37 Eos % (Auto) 0.5 % (0.0-4.3) 10/14/17 17:37 Baso % (Auto) 0.4 % (0.0-1.8) 10/14/17 17:37 Lymph # 1.7 K/mm3 (1.2-5.4) 10/14/17 17:37 [place] # 1.4 K/mm3 (0.0-0.8) H 10/14/17 17:37 Eos # 0.1 K/mm3 (0.0-0.4) 10/14/17 17:37 Baso # 0.0 K/mm3 (0.0-0.1) 10/14/17 17:37 Add Manual Diff Complete 10/16/17 04:29 Total Counted 100 10/16/17 04:29 Seg Neutrophils % 74.7 % (40.0-70.0) H 10/14/17 17:37 Seg Neuts % (Manual) 25.0 % (40.0-70.0) L 10/16/17 04:29 Band Neutrophils % 51.0 % 10/16/17 04:29 Lymphocytes % (Manual) 11.0 % (13.4-35.0) L 10/16/17 04:29 Reactive Lymphs % (Man) 0 % 10/16/17 04:29 Monocytes % (Manual) 5.0 % (0.0-7.3) 10/16/17 04:29 Eosinophils % (Manual) 0 % (0.0-4.3) 10/16/17 04:29 Basophils % (Manual) 1.0 % (0.0-1.8) 10/16/17 04:29 Metamyelocytes % 7.0 % 10/16/17 04:29 Myelocytes % 0 % 10/16/17 04:29 Promyelocytes % 0 % 10/16/17 04:29 Blast Cells % 0 % 10/16/17 04:29 Nucleated RBC % Not Reportable 10/16/17 04:29 Seg Neutrophils # 9.4 K/mm3 (1.8-7.7) H 10/14/17 17:37 Seg Neutrophils # Man 3.4 K/mm3 (1.8-7.7) 10/16/17 04:29 Band Neutrophils # 6.8 K/mm3 10/16/17 04:29 Lymphocytes # (Manual) 1.5 K/mm3 (1.2-5.4) 10/16/17 04:29 Abs React Lymphs (Man) 0.0 K/mm3 10/16/17 04:29 Monocytes # (Manual) 0.7 K/mm3 (0.0-0.8) 10/16/17 04:29 Eosinophils # (Manual) 0.0 K/mm3 (0.0-0.4) 10/16/17 04:29 Basophils # (Manual) 0.1 K/mm3 (0.0-0.1) 10/16/17 04:29 Metamyelocytes # 0.9 K/mm3 10/16/17 04:29 Myelocytes # 0.0 K/mm3 10/16/17 04:29 Promyelocytes # 0.0 K/mm3 10/16/17 04:29 Blast Cells # 0.0 K/mm3 10/16/17 04:29 WBC Morphology Not Reportable 10/16/17 04:29 Hypersegmented Neuts Not Reportable 10/16/17 04:29 Hyposegmented Neuts Not Reportable 10/16/17 04:29 Hypogranular Neuts Not Reportable 10/16/17 04:29 Smudge Cells Not Reportable 10/16/17 04:29 Toxic Granulation Not Reportable 10/16/17 04:29 Toxic Vacuolation Not Reportable 10/16/17 04:29 Dohle Bodies Not Reportable 10/16/17 04:29 Pelger-Huet Anomaly Not Reportable 10/16/17 04:29 Savi Rods Not Reportable 10/16/17 04:29 Platelet Estimate Appears normal 10/16/17 04:29 Clumped Platelets Not Reportable 10/16/17 04:29 Plt Clumps, EDTA Not Reportable 10/16/17 04:29 Large Platelets Not Reportable 10/16/17 04:29 Giant Platelets Not Reportable 10/16/17 04:29 Platelet Satelliting Not Reportable 10/16/17 04:29 Plt Morphology Comment Not Reportable 10/16/17 04:29 RBC Morphology Not Reportable 10/16/17 04:29 Dimorphic RBCs Not Reportable 10/16/17 04:29 Polychromasia Few 10/16/17 04:29 Hypochromasia Not Reportable 10/16/17 04:29 Poikilocytosis Not Reportable 10/16/17 04:29 Anisocytosis Not Reportable 10/16/17 04:29 Microcytosis Not Reportable 10/16/17 04:29 Macrocytosis Not Reportable 10/16/17 04:29 Spherocytes Not Reportable 10/16/17 04:29 Pappenheimer Bodies Not Reportable 10/16/17 04:29 Sickle Cells Not Reportable 10/16/17 04:29 Target Cells Not Reportable 10/16/17 04:29 Tear Drop Cells Not Reportable 10/16/17 04:29 Ovalocytes Few 10/16/17 04:29 Helmet Cells Not Reportable 10/16/17 04:29 Ramirez-[place] Bodies Not Reportable 10/16/17 04:29 [place] Rings Not Reportable 10/16/17 04:29 Lavon Cells Few 10/16/17 04:29 Bite Cells Not Reportable 10/16/17 04:29 Crenated Cell Not Reportable 10/16/17 04:29 Elliptocytes Not Reportable 10/16/17 04:29 Acanthocytes (Spur) Not Reportable 10/16/17 04:29 Rouleaux Not Reportable 10/16/17 04:29 Hemoglobin C Crystals Not Reportable 10/16/17 04:29 Schistocytes Not Reportable 10/16/17 04:29 Malaria parasites Not Reportable 10/16/17 04:29 Miguel Bodies Not Reportable 10/16/17 04:29 Hem Pathologist Commnt No 10/16/17 04:29 Sodium 159 mmol/L (137-145) H 10/19/17 07:31 Potassium 3.3 mmol/L (3.6-5.0) L 10/19/17 07:31 Chloride 123.7 mmol/L (98-107) H 10/19/17 07:31 Carbon Dioxide 23 mmol/L (22-30) 10/19/17 07:31 Anion Gap 16 mmol/L 10/19/17 07:31 BUN 13 mg/dL (7-17) 10/19/17 07:31 Creatinine 0.8 mg/dL (0.7-1.2) 10/19/17 07:31 Estimated GFR > 60 ml/min 10/19/17 07:31 BUN/Creatinine Ratio 16 % 10/19/17 07:31 Glucose 206 mg/dL (65-100) H 10/19/17 07:31 POC Glucose 192 (70-105) H 10/19/17 12:16 Hemoglobin A1c 11.7 % (4-6) H 10/15/17 04:51 Lactic Acid 1.90 mmol/L (0.7-2.0) 10/14/17 17:37 Calcium 8.4 mg/dL (8.4-10.2) 10/19/17 07:31 Phosphorus < 0.30 mg/dL (2.5-4.5) L* 10/19/17 14:42 Magnesium 2.70 mg/dL (1.7-2.3) H 10/19/17 05:35 Total Bilirubin 0.80 mg/dL (0.1-1.2) 10/14/17 17:37 Direct Bilirubin 0.3 mg/dL (0-0.2) H 10/14/17 17:37 Indirect Bilirubin 0.5 mg/dL 10/14/17 17:37 AST 16 units/L (5-40) 10/14/17 17:37 ALT 24 units/L (7-56) 10/14/17 17:37 Alkaline Phosphatase 82 units/L (35-129) 10/14/17 17:37 Total Protein 7.4 g/dL (6.3-8.2) 10/14/17 17:37 Albumin 3.5 g/dL (3.9-5) L 10/14/17 17:37 Albumin/Globulin Ratio 0.9 % 10/14/17 17:37 Lipase 23 units/L (13-60) 10/14/17 17:37 Urine Color Yellow (Yellow) 10/14/17 22:07 Urine Turbidity Clear (Clear) 10/14/17 22:07 Urine pH 6.0 (5.0-7.0) 10/14/17 22:07 Ur Specific [place] 1.016 (1.003-1.030) 10/14/17 22:07 Urine Protein <15 mg/dl mg/dL (Negative) 10/14/17 22:07 Urine Glucose (UA) >=500 mg/dL (Negative) 10/14/17 22:07 Urine Ketones Neg mg/dL (Negative) 10/14/17 22:07 Urine Blood Neg (Negative) 10/14/17 22:07 Urine Nitrite Neg (Negative) 10/14/17 22:07 Urine Bilirubin Neg (Negative) 10/14/17 22:07 Urine Urobilinogen < 2.0 mg/dL (<2.0) 10/14/17 22:07 Ur Leukocyte Esterase Neg (Negative) 10/14/17 22:07 Urine WBC (Auto) < 1.0 /HPF (0.0-6.0) 10/14/17 22:07 Urine RBC (Auto) 2.0 /HPF (0.0-6.0) 10/14/17 22:07 U Epithel Cells (Auto) < 1.0 /HPF (0-13.0) 10/14/17 22:07 Urine Mucus Few /HPF 10/14/17 22:07 Blood Type O POSITIVE 10/15/17 14:00 Antibody Screen Positive 10/15/17 14:00 Antibody Identification Anti-K 10/15/17 14:00 Crossmatch See Detail 10/15/17 14:00
[2017-10-19] MEDS ORDERED: NACL 0.45% 1000 ML 1,000 ML IV SCH (17:00)
[2017-10-19 20:04] LABS: BUN/Creatinine Ratio 14; Blood Urea Nitrogen 11 mg/dL (7-17); Calcium 8.6 mg/dL (8.4-10.2); Hemolysis Index 9
[2017-10-19] MEDS: ZOFRAN IV PRN (20:17)
[2017-10-19] MEDS: LANTUS SUB-Q SCH (22:00)
[2017-10-20] MEDS: HumaLOG SUB-Q SCH ×4 (01:01→17:43)
[2017-10-20] MEDS: DILAUDID IV PRN ×4 (02:38→21:42)
[2017-10-20 05:32] LABS: BUN/Creatinine Ratio 13; Blood Urea Nitrogen 10 mg/dL (7-17); Calcium 8.2 mg/dL (8.4-10.2); Hemolysis Index 0
[2017-10-20 05:54] LABS: Hematocrit 28.1 % (30.3-42.9); Mean Corpuscular HGB Conc 32 % (30-34); Mean Corpuscular Hemoglobin 26 pg (28-32); Mean Corpuscular Volume 82 fl (79-97); Mean Platelet Volume 8.9 fl (6-12); Platelet Count 282 K/mm3 (140-440); Red Blood Count 3.45 M/mm3 (3.65-5.03); Red Cell Distribution Width 14.9 % (13.2-15.2)
[2017-10-20] MEDS: ZOSYN/NS 4.5GM/100ML 4.5 GM/100 ML VIAL IV SCH ×3 (06:17→21:35)
[2017-10-20 08:03] LABS: Anisocytosis 1+; Band Neutrophils # (Manual) 1.1 K/mm3; Basophils % (Manual) 0 % (0.0-1.8); Hypochromasia 1+; Total Cells Counted 100
[2017-10-20] MEDS: HEPARIN SUB-Q SCH ×3 (08:44→21:34)
[2017-10-20] MEDS: PEPCID IV SCH ×3 (08:45→21:33)
--- NOTE | 2017-10-20 10:47 | XRay Report ---
ABDOMEN RADIOGRAPHS INDICATION: Extensive adhesions. COMPARISON: 10/15/2017 FINDINGS: Frontal abdominal radiographs again demonstrate few mid to lower abdominal and pelvic air-containing small bowel caliber upto approximately 3 cm. Nonobstructive colonic pattern and stool noted. No focal suspicious calcifications, pneumatosis or pneumoperitoneum. Multiple ventral hernia repair [place] again seen. Right hemidiaphragm approximately 3.5 cm higher than the left. Stable bones with age-appropriate degenerative changes. CONCLUSION: Partial small bowel obstruction pattern again noted with few other findings, as above. Thank you for the opportunity to participate in this patient's care.
--- NOTE | 2017-10-20 11:15 | Progress Note ---
Assessment and Plan Impression: * Hypernatremia secondary to dehydration * Hypophosphatemia - improved * Hypokalemia - resolved * Hypertension * Leukocytosis * Type II DM Plan: * Continue 1/2 NS - will increase rate as SNa has increased and patient remains NPO * Patient is s/p IV KPhos yesterday - will hold additional replacement for now * Repeat BMP today * Replete lytes prn * Continue prn IV hydralazine * Strict I/O * Glycemic control per primary team Subjective Date of service: 10/20/17 Interval history: Patient has no complaints. Objective - Vital Signs Vital signs: Vital Signs - 12hr 10/20/17 10/20/17 01:09 07:37 Temperature 98.7 F 98.7 F Pulse Rate 92 H 96 H Respiratory 17 18 Rate Blood Pressure 136/81 Blood Pressure 130/64 [Left] O2 Sat by Pulse 99 98 Oximetry - General Appearance General appearance: well-developed, well-nourished EENT: ATNC Respiratory: Present: Decreased Breath Sounds Cardiology: regular, S1S2 Gastrointestinal: hypoactive bowel sounds Integumentary: no rash, warm and dry Musculoskeletal: other (no edema) Psychiatric: cooperative - Lab 10/20/17 04:39 10/20/17 04:39 Most recent lab results Calcium 8.2 mg/dL (8.4-10.2) L 10/20/17 04:39 Phosphorus 2.00 mg/dL (2.5-4.5) L D 10/20/17 04:39 Magnesium 2.70 mg/dL (1.7-2.3) H 10/19/17 05:35
[2017-10-20] MEDS ORDERED: MILK OF MAGNESIA PO ONE (11:45)
[2017-10-20] MEDS ORDERED: NACL 0.45% 1000 ML 1,000 ML IV SCH (12:00)
--- NOTE | 2017-10-20 14:57 | Progress Note ---
Assessment and Plan Assessment and plan: 77-year-old -[place] female was admitted for small bowel obstruction -Continue postop care, nothing by mouth, IV fluids, NG tube is removed -IV antibiotics and supportive care. Small bowel obstruction ; evaluated by surgery - Patient with incarcerated incisional hernia, underwent exploratory laparotomy with excision of scar tissue, lysis of very extensive adhesions Intractable nausea and vomiting; improved Acute kidney injury; gentle hydration closely monitored function Avoid nephrotoxins, resolved Hypernatremia, hypophosphatemia, hypokalemia - Replete potassium, nephrology consulted - Repleted --Leukocytosis; continue empiric Zosyn, blood culture is negative. --DVT prophylaxis SCDs, no pharmacologic anticoagulation per surgery patient is postop --Hypertension; on hydralazine PRN Diabetes mellitus with hyperglycemia - On sliding scale insulin --Full CODE STATUS Out of bed to chair, physical therapy as tolerated Incentive spirometry History Interval history: Patient was seen and evaluated this morning, patient states she passed gas, and had BM. Patient is still NPO Hospitalist Physical - Physical exam Narrative exam: Not in cardiopulmonary distress. NG tube in place. The patient is obese. Vital signs as documented. Head exam is unremarkable. No scleral icterus . Neck is without jugular venous distension, thyromegaly, or carotid bruits. Lungs are clear to auscultation. Cardiac exam reveals regular rate and Rhythm. First and second heart sounds normal. No murmurs, rubs or gallops. Abdominal exam reveals normal bowel sounds, clean dressing, non tender, soft. Extremities are nonedematous and both femoral and pedal pulses are normal. 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 No focal weakness. - Constitutional Vitals: Temp Pulse Resp BP Pulse Ox 98.7 F 96 H 18 136/81 100 10/20/17 07:37 10/20/17 07:37 10/20/17 07:37 10/20/17 07:37 10/20/17 12:27 General appearance: Present: no acute distress, well-nourished, obese Results - Labs CBC & Chem 7: 10/20/17 04:39 10/20/17 04:39 Labs: Laboratory Last Values WBC 17.6 K/mm3 (4.5-11.0) H 10/20/17 04:39 RBC 3.45 M/mm3 (3.65-5.03) L 10/20/17 04:39 Hgb 9.0 gm/dl (10.1-14.3) L 10/20/17 04:39 Hct 28.1 % (30.3-42.9) L 10/20/17 04:39 MCV 82 fl (79-97) 10/20/17 04:39 MCH 26 pg (28-32) L 10/20/17 04:39 MCHC 32 % (30-34) 10/20/17 04:39 RDW 14.9 % (13.2-15.2) 10/20/17 04:39 Plt Count 282 K/mm3 (140-440) 10/20/17 04:39 Lymph % (Auto) 13.5 % (13.4-35.0) 10/14/17 17:37 [place] % (Auto) 10.9 % (0.0-7.3) H 10/14/17 17:37 Eos % (Auto) 0.5 % (0.0-4.3) 10/14/17 17:37 Baso % (Auto) 0.4 % (0.0-1.8) 10/14/17 17:37 Lymph # 1.7 K/mm3 (1.2-5.4) 10/14/17 17:37 [place] # 1.4 K/mm3 (0.0-0.8) H 10/14/17 17:37 Eos # 0.1 K/mm3 (0.0-0.4) 10/14/17 17:37 Baso # 0.0 K/mm3 (0.0-0.1) 10/14/17 17:37 Add Manual Diff Complete 10/20/17 04:39 Total Counted 100 10/20/17 04:39 Seg Neutrophils % 74.7 % (40.0-70.0) H 10/14/17 17:37 Seg Neuts % (Manual) 73.0 % (40.0-70.0) H 10/20/17 04:39 Band Neutrophils % 6.0 % 10/20/17 04:39 Lymphocytes % (Manual) 11.0 % (13.4-35.0) L 10/20/17 04:39 Reactive Lymphs % (Man) 0 % 10/20/17 04:39 Monocytes % (Manual) 7.0 % (0.0-7.3) 10/20/17 04:39 Eosinophils % (Manual) 1.0 % (0.0-4.3) 10/20/17 04:39 Basophils % (Manual) 0 % (0.0-1.8) 10/20/17 04:39 Metamyelocytes % 2.0 % 10/20/17 04:39 Myelocytes % 0 % 10/20/17 04:39 Promyelocytes % 0 % 10/20/17 04:39 Blast Cells % 0 % 10/20/17 04:39 Nucleated RBC % 2.0 % (0.0-0.9) H 10/20/17 04:39 Seg Neutrophils # 9.4 K/mm3 (1.8-7.7) H 10/14/17 17:37 Seg Neutrophils # Man 12.8 K/mm3 (1.8-7.7) H 10/20/17 04:39 Band Neutrophils # 1.1 K/mm3 10/20/17 04:39 Lymphocytes # (Manual) 1.9 K/mm3 (1.2-5.4) 10/20/17 04:39 Abs React Lymphs (Man) 0.0 K/mm3 10/20/17 04:39 Monocytes # (Manual) 1.2 K/mm3 (0.0-0.8) H 10/20/17 04:39 Eosinophils # (Manual) 0.2 K/mm3 (0.0-0.4) 10/20/17 04:39 Basophils # (Manual) 0.0 K/mm3 (0.0-0.1) 10/20/17 04:39 Metamyelocytes # 0.4 K/mm3 10/20/17 04:39 Myelocytes # 0.0 K/mm3 10/20/17 04:39 Promyelocytes # 0.0 K/mm3 10/20/17 04:39 Blast Cells # 0.0 K/mm3 10/20/17 04:39 WBC Morphology Not Reportable 10/20/17 04:39 Hypersegmented Neuts Not Reportable 10/20/17 04:39 Hyposegmented Neuts Not Reportable 10/20/17 04:39 Hypogranular Neuts Not Reportable 10/20/17 04:39 Smudge Cells Not Reportable 10/20/17 04:39 Toxic Granulation Not Reportable 10/20/17 04:39 Toxic Vacuolation Not Reportable 10/20/17 04:39 Dohle Bodies Not Reportable 10/20/17 04:39 Pelger-Huet Anomaly Not Reportable 10/20/17 04:39 Savi Rods Not Reportable 10/20/17 04:39 Platelet Estimate Appears normal 10/20/17 04:39 Clumped Platelets Not Reportable 10/20/17 04:39 Plt Clumps, EDTA Not Reportable 10/20/17 04:39 Large Platelets Not Reportable 10/20/17 04:39 Giant Platelets Not Reportable 10/20/17 04:39 Platelet Satelliting Not Reportable 10/20/17 04:39 Plt Morphology Comment Not Reportable 10/20/17 04:39 RBC Morphology Not Reportable 10/20/17 04:39 Dimorphic RBCs Not Reportable 10/20/17 04:39 Polychromasia Not Reportable 10/20/17 04:39 Hypochromasia 1+ 10/20/17 04:39 Poikilocytosis Not Reportable 10/20/17 04:39 Anisocytosis 1+ 10/20/17 04:39 Microcytosis Not Reportable 10/20/17 04:39 Macrocytosis Not Reportable 10/20/17 04:39 Spherocytes Not Reportable 10/20/17 04:39 Pappenheimer Bodies Not Reportable 10/20/17 04:39 Sickle Cells Not Reportable 10/20/17 04:39 Target Cells Not Reportable 10/20/17 04:39 Tear Drop Cells Not Reportable 10/20/17 04:39 Ovalocytes Not Reportable 10/20/17 04:39 Helmet Cells Not Reportable 10/20/17 04:39 [place] Bodies Not Reportable 10/20/17 04:39 [place] Rings Not Reportable 10/20/17 04:39 Lavon Cells Not Reportable 10/20/17 04:39 Bite Cells Not Reportable 10/20/17 04:39 Crenated Cell Not Reportable 10/20/17 04:39 Elliptocytes Not Reportable 10/20/17 04:39 Acanthocytes (Spur) Not Reportable 10/20/17 04:39 Rouleaux Not Reportable 10/20/17 04:39 Hemoglobin C Crystals Not Reportable 10/20/17 04:39 Schistocytes Not Reportable 10/20/17 04:39 Malaria parasites Not Reportable 10/20/17 04:39 Miguel Bodies Not Reportable 10/20/17 04:39 Hem Pathologist Commnt No 10/20/17 04:39 Sodium 160 mmol/L (137-145) H 10/20/17 04:39 Potassium 3.8 mmol/L (3.6-5.0) 10/20/17 04:39 Chloride 125.8 mmol/L (98-107) H 10/20/17 04:39 Carbon Dioxide 29 mmol/L (22-30) 10/20/17 04:39 Anion Gap 10 mmol/L 10/20/17 04:39 BUN 10 mg/dL (7-17) 10/20/17 04:39 Creatinine 0.8 mg/dL (0.7-1.2) 10/20/17 04:39 Estimated GFR > 60 ml/min 10/20/17 04:39 BUN/Creatinine Ratio 13 % 10/20/17 04:39 Glucose 81 mg/dL (65-100) 10/20/17 04:39 POC Glucose 61 (70-105) L 10/20/17 07:43 Hemoglobin A1c 11.7 % (4-6) H 10/15/17 04:51 Lactic Acid 1.90 mmol/L (0.7-2.0) 10/14/17 17:37 Calcium 8.2 mg/dL (8.4-10.2) L 10/20/17 04:39 Phosphorus 2.00 mg/dL (2.5-4.5) L D 10/20/17 04:39 Magnesium 2.70 mg/dL (1.7-2.3) H 10/19/17 05:35 Total Bilirubin 0.80 mg/dL (0.1-1.2) 10/14/17 17:37 Direct Bilirubin 0.3 mg/dL (0-0.2) H 10/14/17 17:37 Indirect Bilirubin 0.5 mg/dL 10/14/17 17:37 AST 16 units/L (5-40) 10/14/17 17:37 ALT 24 units/L (7-56) 10/14/17 17:37 Alkaline Phosphatase 82 units/L (35-129) 10/14/17 17:37 Total Protein 7.4 g/dL (6.3-8.2) 10/14/17 17:37 Albumin 3.5 g/dL (3.9-5) L 10/14/17 17:37 Albumin/Globulin Ratio 0.9 % 10/14/17 17:37 Lipase 23 units/L (13-60) 10/14/17 17:37 Urine Color Yellow (Yellow) 10/14/17 22:07 Urine Turbidity Clear (Clear) 10/14/17 22:07 Urine pH 6.0 (5.0-7.0) 10/14/17 22:07 Ur Specific [place] 1.016 (1.003-1.030) 10/14/17 22:07 Urine Protein <15 mg/dl mg/dL (Negative) 10/14/17 22:07 Urine Glucose (UA) >=500 mg/dL (Negative) 10/14/17 22:07 Urine Ketones Neg mg/dL (Negative) 10/14/17 22:07 Urine Blood Neg (Negative) 10/14/17 22:07 Urine Nitrite Neg (Negative) 10/14/17 22:07 Urine Bilirubin Neg (Negative) 10/14/17 22:07 Urine Urobilinogen < 2.0 mg/dL (<2.0) 10/14/17 22:07 Ur Leukocyte Esterase Neg (Negative) 10/14/17 22:07 Urine WBC (Auto) < 1.0 /HPF (0.0-6.0) 10/14/17 22:07 Urine RBC (Auto) 2.0 /HPF (0.0-6.0) 10/14/17 22:07 U Epithel Cells (Auto) < 1.0 /HPF (0-13.0) 10/14/17 22:07 Urine Mucus Few /HPF 10/14/17 22:07 Blood Type O POSITIVE 10/15/17 14:00 Antibody Screen Positive 10/15/17 14:00 Antibody Identification Anti-K 10/15/17 14:00 Crossmatch See Detail 10/15/17 14:00
[2017-10-20] MEDS ORDERED: NACL 0.45% 1000 ML 2,000 ML IV SCH (15:00)
--- NOTE | 2017-10-20 18:34 | Progress Note ---
Subjective Patient Reports: Positive: feels better, still having pain, pain is less, flatus , bowel movement Narrative: doing fine on the commode with a BM KUB minimal dilitation of small bowel will proceed slowly . Objective Vital Signs - 12hr 10/20/17 10/20/17 10/20/17 07:37 12:27 17:22 Temperature 98.7 F 98.6 F Pulse Rate 96 H 92 H Respiratory 18 18 Rate Blood Pressure 136/81 Blood Pressure 130/74 [Left] O2 Sat by Pulse 98 100 98 Oximetry - Labs 10/20/17 04:39 10/20/17 04:39 Diabetes panel 10/19/17 10/20/17 Range/Units 19:12 04:39 Sodium 159 H 160 H (137-145) mmol/L Potassium 3.5 L 3.8 (3.6-5.0) mmol/L Chloride 121.5 H 125.8 H (98-107) mmol/L Carbon Dioxide 26 29 (22-30) mmol/L BUN 11 10 (7-17) mg/dL Creatinine 0.8 0.8 (0.7-1.2) mg/dL Glucose 180 H 81 (65-100) mg/dL Calcium 8.6 8.2 L (8.4-10.2) mg/dL Calcium panel 10/19/17 10/20/17 Range/Units 19:12 04:39 Calcium 8.6 8.2 L (8.4-10.2) mg/dL Phosphorus 2.00 L D (2.5-4.5) mg/dL Pituitary panel 10/19/17 10/20/17 Range/Units 19:12 04:39 Sodium 159 H 160 H (137-145) mmol/L Potassium 3.5 L 3.8 (3.6-5.0) mmol/L Chloride 121.5 H 125.8 H (98-107) mmol/L Carbon Dioxide 26 29 (22-30) mmol/L BUN 11 10 (7-17) mg/dL Creatinine 0.8 0.8 (0.7-1.2) mg/dL Glucose 180 H 81 (65-100) mg/dL Calcium 8.6 8.2 L (8.4-10.2) mg/dL Adrenal panel 10/19/17 10/20/17 Range/Units 19:12 04:39 Sodium 159 H 160 H (137-145) mmol/L Potassium 3.5 L 3.8 (3.6-5.0) mmol/L Chloride 121.5 H 125.8 H (98-107) mmol/L Carbon Dioxide 26 29 (22-30) mmol/L BUN 11 10 (7-17) mg/dL Creatinine 0.8 0.8 (0.7-1.2) mg/dL Glucose 180 H 81 (65-100) mg/dL Calcium 8.6 8.2 L (8.4-10.2) mg/dL
[2017-10-20 20:40] LABS: BUN/Creatinine Ratio 16; Blood Urea Nitrogen 14 mg/dL (7-17); Calcium 8.1 mg/dL (8.4-10.2); Hemolysis Index 1
[2017-10-20] MEDS: LANTUS SUB-Q SCH (21:37)
[2017-10-21] MEDS: HumaLOG SUB-Q SCH ×5 (00:38→20:25)
[2017-10-21] MEDS ORDERED: D5/0.45NS 1,000 ML IV SCH (01:00)
[2017-10-21 04:55] LABS: BUN/Creatinine Ratio 17; Blood Urea Nitrogen 15 mg/dL (7-17); Calcium 7.9 mg/dL (8.4-10.2); Hemolysis Index 0
[2017-10-21] MEDS: ZOSYN/NS 4.5GM/100ML 4.5 GM/100 ML VIAL IV SCH ×3 (06:36→22:27)
[2017-10-21] MEDS: DILAUDID IV PRN ×3 (06:41→22:27)
--- NOTE | 2017-10-21 09:09 | Progress Note ---
Subjective Narrative: Talked to pharmacist as to the Na being high 160 ! ,will start d5w with no Na , will check in AM .On clear liq today ,ambulatory, Objective Vital Signs - 12hr 10/21/17 10/21/17 10/21/17 00:00 00:25 04:32 Temperature 97.6 F 97.6 F Pulse Rate 99 H 93 H Respiratory 18 20 Rate Blood Pressure 113/62 152/77 O2 Sat by Pulse 97 96 97 Oximetry 10/21/17 07:08 Temperature 98.4 F Pulse Rate 78 Respiratory 18 Rate Blood Pressure 116/50 O2 Sat by Pulse 99 Oximetry - Labs 10/20/17 04:39 10/21/17 04:29 Diabetes panel 10/20/17 10/21/17 Range/Units 19:56 04:29 Sodium 163 H* 160 H (137-145) mmol/L Potassium 4.0 4.3 (3.6-5.0) mmol/L Chloride 126.1 H 123.7 H (98-107) mmol/L Carbon Dioxide 30 30 (22-30) mmol/L BUN 14 15 (7-17) mg/dL Creatinine 0.9 0.9 (0.7-1.2) mg/dL Glucose 76 141 H (65-100) mg/dL Calcium 8.1 L 7.9 L (8.4-10.2) mg/dL Calcium panel 10/20/17 10/21/17 Range/Units 19:56 04:29 Calcium 8.1 L 7.9 L (8.4-10.2) mg/dL Phosphorus 2.60 D (2.5-4.5) mg/dL Pituitary panel 10/20/17 10/21/17 Range/Units 19:56 04:29 Sodium 163 H* 160 H (137-145) mmol/L Potassium 4.0 4.3 (3.6-5.0) mmol/L Chloride 126.1 H 123.7 H (98-107) mmol/L Carbon Dioxide 30 30 (22-30) mmol/L BUN 14 15 (7-17) mg/dL Creatinine 0.9 0.9 (0.7-1.2) mg/dL Glucose 76 141 H (65-100) mg/dL Calcium 8.1 L 7.9 L (8.4-10.2) mg/dL Adrenal panel 10/20/17 10/21/17 Range/Units 19:56 04:29 Sodium 163 H* 160 H (137-145) mmol/L Potassium 4.0 4.3 (3.6-5.0) mmol/L Chloride 126.1 H 123.7 H (98-107) mmol/L Carbon Dioxide 30 30 (22-30) mmol/L BUN 14 15 (7-17) mg/dL Creatinine 0.9 0.9 (0.7-1.2) mg/dL Glucose 76 141 H (65-100) mg/dL Calcium 8.1 L 7.9 L (8.4-10.2) mg/dL
[2017-10-21] MEDS: PEPCID IV SCH ×2 (10:22→22:28)
[2017-10-21] MEDS: KCL 20 MEQ in D5W 1,000 ML IV SCH (10:23)
[2017-10-21] MEDS: HEPARIN SUB-Q SCH ×2 (10:28→22:28)
--- NOTE | 2017-10-21 10:44 | Progress Note ---
Assessment and Plan Impression: * Partial bowel obstruction s/p exlap with lysis of adhesions * Hypernatremia secondary to dehydration * Hypophosphatemia - resolved * Hypokalemia - resolved * Hypertension * Leukocytosis * Type II DM Plan: * Continue IVF - note change to D5W * Started on clear liquid diet this AM * Replete lytes prn * Continue prn IV hydralazine * Abx per primary team * Strict I/O * Glycemic control per primary team Subjective Date of service: 10/21/17 Interval history: Patient has no complaints. Objective - Vital Signs Vital signs: Vital Signs - 12hr 10/21/17 10/21/17 10/21/17 00:00 00:25 04:32 Temperature 97.6 F 97.6 F Pulse Rate 99 H 93 H Respiratory 18 20 Rate Blood Pressure 113/62 152/77 O2 Sat by Pulse 97 96 97 Oximetry 10/21/17 07:08 Temperature 98.4 F Pulse Rate 78 Respiratory 18 Rate Blood Pressure 116/50 O2 Sat by Pulse 99 Oximetry - General Appearance General appearance: well-developed, well-nourished EENT: ATNC Respiratory: Present: Clear to Ascultation Cardiology: regular, S1S2 Gastrointestinal: hypoactive bowel sounds Integumentary: no rash, warm and dry Musculoskeletal: other (no edema) Psychiatric: cooperative - Lab 10/20/17 04:39 10/21/17 04:29 Most recent lab results Calcium 7.9 mg/dL (8.4-10.2) L 10/21/17 04:29 Phosphorus 2.60 mg/dL (2.5-4.5) D 10/21/17 04:29 Magnesium 2.70 mg/dL (1.7-2.3) H 10/19/17 05:35
[2017-10-21] MEDS ORDERED: FLEET PR NR (12:25)
--- NOTE | 2017-10-21 12:30 | Progress Note ---
Subjective Narrative: Noted abd distension this AM ,will go slow with PO kub Objective Vital Signs - 12hr 10/21/17 10/21/17 10/21/17 04:32 07:08 10:00 Temperature 97.6 F 98.4 F Pulse Rate 93 H 78 Respiratory 20 18 Rate Blood Pressure 152/77 116/50 O2 Sat by Pulse 97 99 100 Oximetry - Labs 10/20/17 04:39 10/21/17 04:29 Diabetes panel 10/20/17 10/21/17 Range/Units 19:56 04:29 Sodium 163 H* 160 H (137-145) mmol/L Potassium 4.0 4.3 (3.6-5.0) mmol/L Chloride 126.1 H 123.7 H (98-107) mmol/L Carbon Dioxide 30 30 (22-30) mmol/L BUN 14 15 (7-17) mg/dL Creatinine 0.9 0.9 (0.7-1.2) mg/dL Glucose 76 141 H (65-100) mg/dL Calcium 8.1 L 7.9 L (8.4-10.2) mg/dL Calcium panel 10/20/17 10/21/17 Range/Units 19:56 04:29 Calcium 8.1 L 7.9 L (8.4-10.2) mg/dL Phosphorus 2.60 D (2.5-4.5) mg/dL Pituitary panel 10/20/17 10/21/17 Range/Units 19:56 04:29 Sodium 163 H* 160 H (137-145) mmol/L Potassium 4.0 4.3 (3.6-5.0) mmol/L Chloride 126.1 H 123.7 H (98-107) mmol/L Carbon Dioxide 30 30 (22-30) mmol/L BUN 14 15 (7-17) mg/dL Creatinine 0.9 0.9 (0.7-1.2) mg/dL Glucose 76 141 H (65-100) mg/dL Calcium 8.1 L 7.9 L (8.4-10.2) mg/dL Adrenal panel 10/20/17 10/21/17 Range/Units 19:56 04:29 Sodium 163 H* 160 H (137-145) mmol/L Potassium 4.0 4.3 (3.6-5.0) mmol/L Chloride 126.1 H 123.7 H (98-107) mmol/L Carbon Dioxide 30 30 (22-30) mmol/L BUN 14 15 (7-17) mg/dL Creatinine 0.9 0.9 (0.7-1.2) mg/dL Glucose 76 141 H (65-100) mg/dL Calcium 8.1 L 7.9 L (8.4-10.2) mg/dL
--- NOTE | 2017-10-21 15:49 | Progress Note ---
Assessment and Plan Assessment and plan: 77-year-old -[place] female was admitted for small bowel obstruction -Continue postop care, nothing by mouth, IV fluids, NG tube removed -IV antibiotics and supportive care. Small bowel obstruction ; evaluated by surgery - Patient with incarcerated incisional hernia, underwent exploratory laparotomy with excision of scar tissue, lysis of very extensive adhesions Intractable nausea and vomiting; improved Acute kidney injury; gentle hydration closely monitored function Avoid nephrotoxins, resolved Hypernatremia, hypophosphatemia, hypokalemia - Replete potassium, nephrology consulted - patient is on D5 1/2 NS Sepsis: continue empiric Zosyn, blood culture is negative so far. --DVT prophylaxis SCDs, no pharmacologic anticoagulation per surgery patient is postop --Hypertension; on hydralazine PRN Diabetes mellitus with hyperglycemia - On sliding scale insulin --Full CODE STATUS Out of bed to chair, physical therapy as tolerated Incentive spirometry History Interval history: Patient was seen and evaluated this morning, patient states she passed gas, and had BM. Patient started with clear liquid diet. Hospitalist Physical - Physical exam Narrative exam: Not in cardiopulmonary distress. NG tube in place. The patient is obese. Vital signs as documented. Head exam is unremarkable. No scleral icterus . Neck is without jugular venous distension, thyromegaly, or carotid bruits. Lungs are clear to auscultation. Cardiac exam reveals regular rate and Rhythm. First and second heart sounds normal. No murmurs, rubs or gallops. Abdominal exam surgical sutures in place. Extremities are nonedematous and both femoral and pedal pulses are normal. PSYCHOMETRIST: Alert and oriented 3. No focal weakness. - Constitutional Vitals: Temp Pulse Resp BP Pulse Ox 98.4 F 78 18 116/50 100 10/21/17 07:08 10/21/17 07:08 10/21/17 07:08 10/21/17 07:08 10/21/17 10:00 General appearance: Present: no acute distress, well-nourished, obese Results - Labs CBC & Chem 7: 10/20/17 04:39 10/21/17 04:29 Labs: Laboratory Last Values WBC 17.6 K/mm3 (4.5-11.0) H 10/20/17 04:39 RBC 3.45 M/mm3 (3.65-5.03) L 10/20/17 04:39 Hgb 9.0 gm/dl (10.1-14.3) L 10/20/17 04:39 Hct 28.1 % (30.3-42.9) L 10/20/17 04:39 MCV 82 fl (79-97) 10/20/17 04:39 MCH 26 pg (28-32) L 10/20/17 04:39 MCHC 32 % (30-34) 10/20/17 04:39 RDW 14.9 % (13.2-15.2) 10/20/17 04:39 Plt Count 282 K/mm3 (140-440) 10/20/17 04:39 Lymph % (Auto) 13.5 % (13.4-35.0) 10/14/17 17:37 [place] % (Auto) 10.9 % (0.0-7.3) H 10/14/17 17:37 Eos % (Auto) 0.5 % (0.0-4.3) 10/14/17 17:37 Baso % (Auto) 0.4 % (0.0-1.8) 10/14/17 17:37 Lymph # 1.7 K/mm3 (1.2-5.4) 10/14/17 17:37 [place] # 1.4 K/mm3 (0.0-0.8) H 10/14/17 17:37 Eos # 0.1 K/mm3 (0.0-0.4) 10/14/17 17:37 Baso # 0.0 K/mm3 (0.0-0.1) 10/14/17 17:37 Add Manual Diff Complete 10/20/17 04:39 Total Counted 100 10/20/17 04:39 Seg Neutrophils % 74.7 % (40.0-70.0) H 10/14/17 17:37 Seg Neuts % (Manual) 73.0 % (40.0-70.0) H 10/20/17 04:39 Band Neutrophils % 6.0 % 10/20/17 04:39 Lymphocytes % (Manual) 11.0 % (13.4-35.0) L 10/20/17 04:39 Reactive Lymphs % (Man) 0 % 10/20/17 04:39 Monocytes % (Manual) 7.0 % (0.0-7.3) 10/20/17 04:39 Eosinophils % (Manual) 1.0 % (0.0-4.3) 10/20/17 04:39 Basophils % (Manual) 0 % (0.0-1.8) 10/20/17 04:39 Metamyelocytes % 2.0 % 10/20/17 04:39 Myelocytes % 0 % 10/20/17 04:39 Promyelocytes % 0 % 10/20/17 04:39 Blast Cells % 0 % 10/20/17 04:39 Nucleated RBC % 2.0 % (0.0-0.9) H 10/20/17 04:39 Seg Neutrophils # 9.4 K/mm3 (1.8-7.7) H 10/14/17 17:37 Seg Neutrophils # Man 12.8 K/mm3 (1.8-7.7) H 10/20/17 04:39 Band Neutrophils # 1.1 K/mm3 10/20/17 04:39 Lymphocytes # (Manual) 1.9 K/mm3 (1.2-5.4) 10/20/17 04:39 Abs React Lymphs (Man) 0.0 K/mm3 10/20/17 04:39 Monocytes # (Manual) 1.2 K/mm3 (0.0-0.8) H 10/20/17 04:39 Eosinophils # (Manual) 0.2 K/mm3 (0.0-0.4) 10/20/17 04:39 Basophils # (Manual) 0.0 K/mm3 (0.0-0.1) 10/20/17 04:39 Metamyelocytes # 0.4 K/mm3 10/20/17 04:39 Myelocytes # 0.0 K/mm3 10/20/17 04:39 Promyelocytes # 0.0 K/mm3 10/20/17 04:39 Blast Cells # 0.0 K/mm3 10/20/17 04:39 WBC Morphology Not Reportable 10/20/17 04:39 Hypersegmented Neuts Not Reportable 10/20/17 04:39 Hyposegmented Neuts Not Reportable 10/20/17 04:39 Hypogranular Neuts Not Reportable 10/20/17 04:39 Smudge Cells Not Reportable 10/20/17 04:39 Toxic Granulation Not Reportable 10/20/17 04:39 Toxic Vacuolation Not Reportable 10/20/17 04:39 Dohle Bodies Not Reportable 10/20/17 04:39 Pelger-Huet Anomaly Not Reportable 10/20/17 04:39 Savi Rods Not Reportable 10/20/17 04:39 Platelet Estimate Appears normal 10/20/17 04:39 Clumped Platelets Not Reportable 10/20/17 04:39 Plt Clumps, EDTA Not Reportable 10/20/17 04:39 Large Platelets Not Reportable 10/20/17 04:39 Giant Platelets Not Reportable 10/20/17 04:39 Platelet Satelliting Not Reportable 10/20/17 04:39 Plt Morphology Comment Not Reportable 10/20/17 04:39 RBC Morphology Not Reportable 10/20/17 04:39 Dimorphic RBCs Not Reportable 10/20/17 04:39 Polychromasia Not Reportable 10/20/17 04:39 Hypochromasia 1+ 10/20/17 04:39 Poikilocytosis Not Reportable 10/20/17 04:39 Anisocytosis 1+ 10/20/17 04:39 Microcytosis Not Reportable 10/20/17 04:39 Macrocytosis Not Reportable 10/20/17 04:39 Spherocytes Not Reportable 10/20/17 04:39 Pappenheimer Bodies Not Reportable 10/20/17 04:39 Sickle Cells Not Reportable 10/20/17 04:39 Target Cells Not Reportable 10/20/17 04:39 Tear Drop Cells Not Reportable 10/20/17 04:39 Ovalocytes Not Reportable 10/20/17 04:39 Helmet Cells Not Reportable 10/20/17 04:39 Ramirez-[place] Bodies Not Reportable 10/20/17 04:39 [place] Rings Not Reportable 10/20/17 04:39 [place] Cells Not Reportable 10/20/17 04:39 Bite Cells Not Reportable 10/20/17 04:39 Crenated Cell Not Reportable 10/20/17 04:39 Elliptocytes Not Reportable 10/20/17 04:39 Acanthocytes (Spur) Not Reportable 10/20/17 04:39 Rouleaux Not Reportable 10/20/17 04:39 Hemoglobin C Crystals Not Reportable 10/20/17 04:39 Schistocytes Not Reportable 10/20/17 04:39 Malaria parasites Not Reportable 10/20/17 04:39 Miguel Bodies Not Reportable 10/20/17 04:39 Hem Pathologist Commnt No 10/20/17 04:39 Sodium 160 mmol/L (137-145) H 10/21/17 04:29 Potassium 4.3 mmol/L (3.6-5.0) 10/21/17 04:29 Chloride 123.7 mmol/L (98-107) H 10/21/17 04:29 Carbon Dioxide 30 mmol/L (22-30) 10/21/17 04:29 Anion Gap 11 mmol/L 10/21/17 04:29 BUN 15 mg/dL (7-17) 10/21/17 04:29 Creatinine 0.9 mg/dL (0.7-1.2) 10/21/17 04:29 Estimated GFR > 60 ml/min 10/21/17 04:29 BUN/Creatinine Ratio 17 % 10/21/17 04:29 Glucose 141 mg/dL (65-100) H 10/21/17 04:29 POC Glucose 374 (70-105) H 10/21/17 12:20 Hemoglobin A1c 11.7 % (4-6) H 10/15/17 04:51 Lactic Acid 1.90 mmol/L (0.7-2.0) 10/14/17 17:37 Calcium 7.9 mg/dL (8.4-10.2) L 10/21/17 04:29 Phosphorus 2.60 mg/dL (2.5-4.5) D 10/21/17 04:29 Magnesium 2.70 mg/dL (1.7-2.3) H 10/19/17 05:35 Total Bilirubin 0.80 mg/dL (0.1-1.2) 10/14/17 17:37 Direct Bilirubin 0.3 mg/dL (0-0.2) H 10/14/17 17:37 Indirect Bilirubin 0.5 mg/dL 10/14/17 17:37 AST 16 units/L (5-40) 10/14/17 17:37 ALT 24 units/L (7-56) 10/14/17 17:37 Alkaline Phosphatase 82 units/L (35-129) 10/14/17 17:37 Total Protein 7.4 g/dL (6.3-8.2) 10/14/17 17:37 Albumin 3.5 g/dL (3.9-5) L 10/14/17 17:37 Albumin/Globulin Ratio 0.9 % 10/14/17 17:37 Lipase 23 units/L (13-60) 10/14/17 17:37 Urine Color Yellow (Yellow) 10/14/17 22:07 Urine Turbidity Clear (Clear) 10/14/17 22:07 Urine pH 6.0 (5.0-7.0) 10/14/17 22:07 Ur Specific [place] 1.016 (1.003-1.030) 10/14/17 22:07 Urine Protein <15 mg/dl mg/dL (Negative) 10/14/17 22:07 Urine Glucose (UA) >=500 mg/dL (Negative) 10/14/17 22:07 Urine Ketones Neg mg/dL (Negative) 10/14/17 22:07 Urine Blood Neg (Negative) 10/14/17 22:07 Urine Nitrite Neg (Negative) 10/14/17 22:07 Urine Bilirubin Neg (Negative) 10/14/17 22:07 Urine Urobilinogen < 2.0 mg/dL (<2.0) 10/14/17 22:07 Ur Leukocyte Esterase Neg (Negative) 10/14/17 22:07 Urine WBC (Auto) < 1.0 /HPF (0.0-6.0) 10/14/17 22:07 Urine RBC (Auto) 2.0 /HPF (0.0-6.0) 10/14/17 22:07 U Epithel Cells (Auto) < 1.0 /HPF (0-13.0) 10/14/17 22:07 Urine Mucus Few /HPF 10/14/17 22:07 Blood Type O POSITIVE 10/15/17 14:00 Antibody Screen Positive 10/15/17 14:00 Antibody Identification Anti-K 10/15/17 14:00 Crossmatch See Detail 10/15/17 14:00
[2017-10-21] MEDS: LANTUS SUB-Q SCH (22:49)
[2017-10-22] MEDS: HumaLOG SUB-Q SCH ×4 (00:11→18:40)
[2017-10-22] MEDS: KCL 20 MEQ in D5W 1,000 ML IV SCH (00:48)
[2017-10-22 05:21] LABS: BUN/Creatinine Ratio 11; Blood Urea Nitrogen 10 mg/dL (7-17); Calcium 7.9 mg/dL (8.4-10.2); Hemolysis Index 1
[2017-10-22] MEDS: ZOSYN/NS 4.5GM/100ML 4.5 GM/100 ML VIAL IV SCH ×3 (05:33→21:10)
--- NOTE | 2017-10-22 11:03 | XRay Report ---
AP ABDOMEN: HISTORY: Small bowel obstruction. No significant changes demonstrated since 10/20/16. There are a few mildly dilated loops of small bowel in the midabdomen. Normal gas in the colon. No evidence for mass, large free air or pathologic calcifications. Hernia repair changes are noted. IMPRESSION: No change.
[2017-10-22] MEDS: PEPCID IV SCH ×2 (11:11→21:30)
[2017-10-22] MEDS: HEPARIN SUB-Q SCH ×2 (11:11→21:31)
[2017-10-22] MEDS: DILAUDID IV PRN ×2 (11:25→17:00)
--- NOTE | 2017-10-22 13:03 | Progress Note ---
Assessment and Plan Assessment and plan: Small bowel obstruction, likely secondary to surgical adhesions -s/p exploratory laparotomy with lysis -started on clear liquid, to be advanced as tolerated -Surgery following Recurrent inguinal hernia -status post exploratory laparotomy -Surgery following Intractable nausea and vomiting -resolved Acute kidney injury -Resolved -Avoid nephrotoxins, resolved Hypernatremia, likely secondary to dehydration -Improving on IV fluid, will continue to monitor -Nephrology following Hypophosphatemia and hypokalemia -On repletion, will monitor SIRS -continue empiric IV Zosyn -blood cultures negative so far. -Hypertension -stable on hydralazine PRN NIDDM2 -Stable on sliding scale insulin -DVT prophylaxis: SCDs, no pharmacologic anticoagulation per surgery 32 minutes spent coordinating care Disposition: Discharge when medically stable. History Interval history: Patient is seen and examined today. She complains of abdominal pain. She admits to passing flatus and bowel movement. Hospitalist Physical - Constitutional Vitals: Temp Pulse Resp BP Pulse Ox 98.3 F 76 20 131/57 131 H 10/22/17 08:00 10/22/17 08:00 10/22/17 11:31 10/22/17 08:00 10/22/17 08:00 General appearance: Present: no acute distress - EENT Eyes: Present: PERRL, EOM intact ENT: hearing intact, clear oral mucosa - Neck Neck: Present: supple - Respiratory Respiratory effort: normal Respiratory: bilateral: CTA - Cardiovascular Rhythm: regular Heart Sounds: Present: S1 & S2 - Extremities Extremity abnormal: edema (trace in BLE) - Abdominal General gastrointestinal: soft, tender (generalized), distended, normal bowel sounds, other (surgical [place] noted) - Neurologic Neurologic: CNII-XII intact Results - Labs CBC & Chem 7: 10/20/17 04:39 10/22/17 04:31 Labs: Laboratory Last Values WBC 17.6 K/mm3 (4.5-11.0) H 10/20/17 04:39 RBC 3.45 M/mm3 (3.65-5.03) L 10/20/17 04:39 Hgb 9.0 gm/dl (10.1-14.3) L 10/20/17 04:39 Hct 28.1 % (30.3-42.9) L 10/20/17 04:39 MCV 82 fl (79-97) 10/20/17 04:39 MCH 26 pg (28-32) L 10/20/17 04:39 MCHC 32 % (30-34) 10/20/17 04:39 RDW 14.9 % (13.2-15.2) 10/20/17 04:39 Plt Count 282 K/mm3 (140-440) 10/20/17 04:39 Lymph % (Auto) 13.5 % (13.4-35.0) 10/14/17 17:37 [place] % (Auto) 10.9 % (0.0-7.3) H 10/14/17 17:37 Eos % (Auto) 0.5 % (0.0-4.3) 10/14/17 17:37 Baso % (Auto) 0.4 % (0.0-1.8) 10/14/17 17:37 Lymph # 1.7 K/mm3 (1.2-5.4) 10/14/17 17:37 [place] # 1.4 K/mm3 (0.0-0.8) H 10/14/17 17:37 Eos # 0.1 K/mm3 (0.0-0.4) 10/14/17 17:37 Baso # 0.0 K/mm3 (0.0-0.1) 10/14/17 17:37 Add Manual Diff Complete 10/20/17 04:39 Total Counted 100 10/20/17 04:39 Seg Neutrophils % 74.7 % (40.0-70.0) H 10/14/17 17:37 Seg Neuts % (Manual) 73.0 % (40.0-70.0) H 10/20/17 04:39 Band Neutrophils % 6.0 % 10/20/17 04:39 Lymphocytes % (Manual) 11.0 % (13.4-35.0) L 10/20/17 04:39 Reactive Lymphs % (Man) 0 % 10/20/17 04:39 Monocytes % (Manual) 7.0 % (0.0-7.3) 10/20/17 04:39 Eosinophils % (Manual) 1.0 % (0.0-4.3) 10/20/17 04:39 Basophils % (Manual) 0 % (0.0-1.8) 10/20/17 04:39 Metamyelocytes % 2.0 % 10/20/17 04:39 Myelocytes % 0 % 10/20/17 04:39 Promyelocytes % 0 % 10/20/17 04:39 Blast Cells % 0 % 10/20/17 04:39 Nucleated RBC % 2.0 % (0.0-0.9) H 10/20/17 04:39 Seg Neutrophils # 9.4 K/mm3 (1.8-7.7) H 10/14/17 17:37 Seg Neutrophils # Man 12.8 K/mm3 (1.8-7.7) H 10/20/17 04:39 Band Neutrophils # 1.1 K/mm3 10/20/17 04:39 Lymphocytes # (Manual) 1.9 K/mm3 (1.2-5.4) 10/20/17 04:39 Abs React Lymphs (Man) 0.0 K/mm3 10/20/17 04:39 Monocytes # (Manual) 1.2 K/mm3 (0.0-0.8) H 10/20/17 04:39 Eosinophils # (Manual) 0.2 K/mm3 (0.0-0.4) 10/20/17 04:39 Basophils # (Manual) 0.0 K/mm3 (0.0-0.1) 10/20/17 04:39 Metamyelocytes # 0.4 K/mm3 10/20/17 04:39 Myelocytes # 0.0 K/mm3 10/20/17 04:39 Promyelocytes # 0.0 K/mm3 10/20/17 04:39 Blast Cells # 0.0 K/mm3 10/20/17 04:39 WBC Morphology Not Reportable 10/20/17 04:39 Hypersegmented Neuts Not Reportable 10/20/17 04:39 Hyposegmented Neuts Not Reportable 10/20/17 04:39 Hypogranular Neuts Not Reportable 10/20/17 04:39 Smudge Cells Not Reportable 10/20/17 04:39 Toxic Granulation Not Reportable 10/20/17 04:39 Toxic Vacuolation Not Reportable 10/20/17 04:39 Dohle Bodies Not Reportable 10/20/17 04:39 Pelger-Huet Anomaly Not Reportable 10/20/17 04:39 Savi Rods Not Reportable 10/20/17 04:39 Platelet Estimate Appears normal 10/20/17 04:39 Clumped Platelets Not Reportable 10/20/17 04:39 Plt Clumps, EDTA Not Reportable 10/20/17 04:39 Large Platelets Not Reportable 10/20/17 04:39 Giant Platelets Not Reportable 10/20/17 04:39 Platelet Satelliting Not Reportable 10/20/17 04:39 Plt Morphology Comment Not Reportable 10/20/17 04:39 RBC Morphology Not Reportable 10/20/17 04:39 Dimorphic RBCs Not Reportable 10/20/17 04:39 Polychromasia Not Reportable 10/20/17 04:39 Hypochromasia 1+ 10/20/17 04:39 Poikilocytosis Not Reportable 10/20/17 04:39 Anisocytosis 1+ 10/20/17 04:39 Microcytosis Not Reportable 10/20/17 04:39 Macrocytosis Not Reportable 10/20/17 04:39 Spherocytes Not Reportable 10/20/17 04:39 Pappenheimer Bodies Not Reportable 10/20/17 04:39 Sickle Cells Not Reportable 10/20/17 04:39 Target Cells Not Reportable 10/20/17 04:39 Tear Drop Cells Not Reportable 10/20/17 04:39 Ovalocytes Not Reportable 10/20/17 04:39 Helmet Cells Not Reportable 10/20/17 04:39 [place] Bodies Not Reportable 10/20/17 04:39 [place] Rings Not Reportable 10/20/17 04:39 [place] Cells Not Reportable 10/20/17 04:39 Bite Cells Not Reportable 10/20/17 04:39 Crenated Cell Not Reportable 10/20/17 04:39 Elliptocytes Not Reportable 10/20/17 04:39 Acanthocytes (Spur) Not Reportable 10/20/17 04:39 Rouleaux Not Reportable 10/20/17 04:39 Hemoglobin C Crystals Not Reportable 10/20/17 04:39 Schistocytes Not Reportable 10/20/17 04:39 Malaria parasites Not Reportable 10/20/17 04:39 Miguel Bodies Not Reportable 10/20/17 04:39 Hem Pathologist Commnt No 10/20/17 04:39 Sodium 156 mmol/L (137-145) H 10/22/17 04:31 Potassium 3.6 mmol/L (3.6-5.0) 10/22/17 04:31 Chloride 119.7 mmol/L (98-107) H 10/22/17 04:31 Carbon Dioxide 30 mmol/L (22-30) 10/22/17 04:31 Anion Gap 10 mmol/L 10/22/17 04:31 BUN 10 mg/dL (7-17) 10/22/17 04:31 Creatinine 0.9 mg/dL (0.7-1.2) 10/22/17 04:31 Estimated GFR > 60 ml/min 10/22/17 04:31 BUN/Creatinine Ratio 11 % 10/22/17 04:31 Glucose 141 mg/dL (65-100) H 10/22/17 04:31 POC Glucose 129 (70-105) H 10/22/17 07:57 Hemoglobin A1c 11.7 % (4-6) H 10/15/17 04:51 Lactic Acid 1.90 mmol/L (0.7-2.0) 10/14/17 17:37 Calcium 7.9 mg/dL (8.4-10.2) L 10/22/17 04:31 Phosphorus 1.70 mg/dL (2.5-4.5) L D 10/22/17 04:31 Magnesium 2.70 mg/dL (1.7-2.3) H 10/19/17 05:35 Total Bilirubin 0.80 mg/dL (0.1-1.2) 10/14/17 17:37 Direct Bilirubin 0.3 mg/dL (0-0.2) H 10/14/17 17:37 Indirect Bilirubin 0.5 mg/dL 10/14/17 17:37 AST 16 units/L (5-40) 10/14/17 17:37 ALT 24 units/L (7-56) 10/14/17 17:37 Alkaline Phosphatase 82 units/L (35-129) 10/14/17 17:37 Total Protein 7.4 g/dL (6.3-8.2) 10/14/17 17:37 Albumin 3.5 g/dL (3.9-5) L 10/14/17 17:37 Albumin/Globulin Ratio 0.9 % 10/14/17 17:37 Lipase 23 units/L (13-60) 10/14/17 17:37 Urine Color Yellow (Yellow) 10/14/17 22:07 Urine Turbidity Clear (Clear) 10/14/17 22:07 Urine pH 6.0 (5.0-7.0) 10/14/17 22:07 Ur Specific [place] 1.016 (1.003-1.030) 10/14/17 22:07 Urine Protein <15 mg/dl mg/dL (Negative) 10/14/17 22:07 Urine Glucose (UA) >=500 mg/dL (Negative) 10/14/17 22:07 Urine Ketones Neg mg/dL (Negative) 10/14/17 22:07 Urine Blood Neg (Negative) 10/14/17 22:07 Urine Nitrite Neg (Negative) 10/14/17 22:07 Urine Bilirubin Neg (Negative) 10/14/17 22:07 Urine Urobilinogen < 2.0 mg/dL (<2.0) 10/14/17 22:07 Ur Leukocyte Esterase Neg (Negative) 10/14/17 22:07 Urine WBC (Auto) < 1.0 /HPF (0.0-6.0) 10/14/17 22:07 Urine RBC (Auto) 2.0 /HPF (0.0-6.0) 10/14/17 22:07 U Epithel Cells (Auto) < 1.0 /HPF (0-13.0) 10/14/17 22:07 Urine Mucus Few /HPF 10/14/17 22:07 Blood Type O POSITIVE 10/15/17 14:00 Antibody Screen Positive 10/15/17 14:00 Antibody Identification Anti-K 10/15/17 14:00 Crossmatch See Detail 10/15/17 14:00
[2017-10-22] MEDS ORDERED: MILK OF MAGNESIA PO ONE (15:02)
--- NOTE | 2017-10-22 15:09 | Progress Note ---
Subjective Patient Reports: Positive: feels better, still having pain, pain is less, flatus , bowel movement Narrative: feels mush better . had a BM . passed flatus , KUB improving , will UP,po Objective Vital Signs - 12hr 10/22/17 10/22/17 10/22/17 08:00 11:25 11:31 Temperature 98.3 F Pulse Rate 76 Respiratory 16 20 Rate Respiratory 20 Rate [abdomen] Blood Pressure 131/57 [Left] O2 Sat by Pulse 131 H Oximetry 10/22/17 11:55 Temperature Pulse Rate Respiratory 20 Rate Respiratory Rate [abdomen] Blood Pressure [Left] O2 Sat by Pulse Oximetry - Labs 10/20/17 04:39 10/22/17 04:31 Diabetes panel 10/22/17 Range/Units 04:31 Sodium 156 H (137-145) mmol/L Potassium 3.6 (3.6-5.0) mmol/L Chloride 119.7 H (98-107) mmol/L Carbon Dioxide 30 (22-30) mmol/L BUN 10 (7-17) mg/dL Creatinine 0.9 (0.7-1.2) mg/dL Glucose 141 H (65-100) mg/dL Calcium 7.9 L (8.4-10.2) mg/dL Calcium panel 10/22/17 Range/Units 04:31 Calcium 7.9 L (8.4-10.2) mg/dL Phosphorus 1.70 L D (2.5-4.5) mg/dL Pituitary panel 10/22/17 Range/Units 04:31 Sodium 156 H (137-145) mmol/L Potassium 3.6 (3.6-5.0) mmol/L Chloride 119.7 H (98-107) mmol/L Carbon Dioxide 30 (22-30) mmol/L BUN 10 (7-17) mg/dL Creatinine 0.9 (0.7-1.2) mg/dL Glucose 141 H (65-100) mg/dL Calcium 7.9 L (8.4-10.2) mg/dL Adrenal panel 10/22/17 Range/Units 04:31 Sodium 156 H (137-145) mmol/L Potassium 3.6 (3.6-5.0) mmol/L Chloride 119.7 H (98-107) mmol/L Carbon Dioxide 30 (22-30) mmol/L BUN 10 (7-17) mg/dL Creatinine 0.9 (0.7-1.2) mg/dL Glucose 141 H (65-100) mg/dL Calcium 7.9 L (8.4-10.2) mg/dL
--- NOTE | 2017-10-22 16:30 | Progress Note ---
Subjective Interval history: Patient was seen today for follow-up, on many renal related issues she is sitting at the bedside daughter present in the room Patient currently denies having any symptoms of chest pain pressure shortness of breath Better aware about renal related issues Interdisciplinary notes were reviewed Vitals labs intake and output medications were reviewed from today Allergies: Reviewed Social history: Reviewed Family history: Reviewed Physical examination HEENT: Oral mucosa moist no pharyngeal erythema Neck: Supple no JVD Chest: Clear to auscultation no crackles rales or wheezes Heart: Regular rate and rhythm S1-S2 heard no S3-S4 Abdomen: Soft nontender no renal bruit no CVA tenderness no suprapubic fullness Extremity: Mild edema dry skin no peripheral cyanosis pulses palpable Neurological: Alert awake Musculoskeletal: No joint effusion noted Assessment and plan Hyperglycemia mostly resulting from free water deficit current sodium is improving about 156 today daughter is at the bedside patient received hematocrit counseling and education regarding renal related issues Creatinine is currently stable at 0.9 Severe hypophosphatemia improving well will need follow-up on the potassium and phosphorus level as patient was also hypokalemic in the range of 3.5 Would like to give a dose of potassium phosphate [address] scan of abdomen and pelvis obtained; left kidney has extrarenal pelvis otherwise unremarkable Labs were discussed with patient explained and simple [place] does have good understanding off renal related issues, Will continue to follow and make recommendation from renal standpoint Objective - Vital Signs Vital signs: Vital Signs - 12hr 10/22/17 10/22/17 10/22/17 08:00 11:25 11:31 Temperature 98.3 F Pulse Rate 76 Respiratory 16 20 Rate Respiratory 20 Rate [abdomen] Blood Pressure 131/57 [Left] O2 Sat by Pulse 131 H Oximetry 10/22/17 11:55 Temperature Pulse Rate Respiratory 20 Rate Respiratory Rate [abdomen] Blood Pressure [Left] O2 Sat by Pulse Oximetry - Lab 10/20/17 04:39 10/22/17 04:31 Most recent lab results Calcium 7.9 mg/dL (8.4-10.2) L 10/22/17 04:31 Phosphorus 1.70 mg/dL (2.5-4.5) L D 10/22/17 04:31 Magnesium 2.70 mg/dL (1.7-2.3) H 10/19/17 05:35
[2017-10-22] MEDS ORDERED: KPHOS 15 MMOL in NACL 0.9% 250ML 250 ML IV ONE (17:56)
[2017-10-22] MEDS: LANTUS SUB-Q SCH (21:37)
[2017-10-23] MEDS: HumaLOG SUB-Q SCH ×4 (01:12→19:03)
[2017-10-23] MEDS: DILAUDID IV PRN ×4 (03:18→21:24)
[2017-10-23] MEDS: ZOSYN/NS 4.5GM/100ML 4.5 GM/100 ML VIAL IV SCH ×3 (05:42→21:25)
[2017-10-23 05:55] LABS: Basophils % (Auto) 0.4 % (0.0-1.8); Eosinophils # (Auto) 0.3 K/mm3 (0.0-0.4); Hematocrit 25.2 % (30.3-42.9); Hemoglobin 8.3 gm/dl (10.1-14.3); Lymphocytes # (Auto) 2.4 K/mm3 (1.2-5.4); Lymphocytes % (Auto) 24.5 % (13.4-35.0); Mean Corpuscular HGB Conc 33 % (30-34); Mean Corpuscular Hemoglobin 27 pg (28-32); Mean Corpuscular Volume 81 fl (79-97); Monocytes # (Auto) 1.2 K/mm3 (0.0-0.8); Monocytes % (Auto) 11.8 % (0.0-7.3); Platelet Count 238 K/mm3 (140-440); Red Blood Count 3.12 M/mm3 (3.65-5.03); Red Cell Distribution Width 14.9 % (13.2-15.2)
[2017-10-23 06:19] LABS: BUN/Creatinine Ratio 9; Blood Urea Nitrogen 6 mg/dL (7-17); Hemolysis Index 1
--- NOTE | 2017-10-23 09:06 | Progress Note ---
Subjective Interval history: Patient was seen today for follow-up, on many renal related issues No complaints of dryness in the mouth Better aware about renal related issues Interdisciplinary notes were reviewed Vitals labs intake and output medications were reviewed from today Allergies: Reviewed Social history: Reviewed Family history: Reviewed Physical examination HEENT: Oral mucosa moist no pharyngeal erythema Neck: Supple no JVD Chest: Clear to auscultation no crackles rales or wheezes Heart: Regular rate and rhythm S1-S2 heard no S3-S4 Abdomen: Soft nontender no renal bruit no CVA tenderness no suprapubic fullness Extremity: Mild edema dry skin no peripheral cyanosis pulses palpable Neurological: Alert awake Musculoskeletal: No joint effusion noted Assessment and plan Hypokalemia: Consider replacement with at least 40 mEq of potassium today Hypernatremia slowly improving as desired, continue to monitor basic metabolic profile Renal function normal today/hypophosphatemia improving well to monitor and follow Anemia: Multifactorial/overall progressive improvement in renal function CT scan of abdomen and pelvis obtained; left kidney has extrarenal pelvis otherwise unremarkable Labs were discussed with patient explained and simple [place]ri[place] does have good understanding off renal related issues, Will continue to follow and make recommendation from renal standpoint Objective - Vital Signs Vital signs: Vital Signs - 12hr 10/22/17 10/22/17 10/22/17 21:23 22:00 23:50 Temperature 98.2 F Pulse Rate 94 H Respiratory 20 18 Rate Blood Pressure Blood Pressure 129/84 [Left] O2 Sat by Pulse 95 96 Oximetry 10/23/17 10/23/17 10/23/17 03:18 06:09 07:43 Temperature 98.5 F 99.1 F Pulse Rate 83 97 H Respiratory 18 18 18 Rate Blood Pressure 147/74 Blood Pressure 130/62 [Left] O2 Sat by Pulse 100 93 Oximetry - Lab 10/23/17 05:16 10/23/17 05:16 Most recent lab results Calcium 8.0 mg/dL (8.4-10.2) L 10/23/17 05:16 Phosphorus 2.70 mg/dL (2.5-4.5) D 10/23/17 05:16 Magnesium 2.70 mg/dL (1.7-2.3) H 10/19/17 05:35
[2017-10-23] MEDS ORDERED: POTASSIUM CHLORIDE FEEDTUBE ONE (09:22)
[2017-10-23] MEDS: PEPCID IV SCH ×2 (10:27→21:26)
[2017-10-23] MEDS: HEPARIN SUB-Q SCH ×2 (10:30→21:26)
[2017-10-23] MEDS: D5/0.45NS 1,000 ML IV SCH (10:33)
--- NOTE | 2017-10-23 11:38 | XRay Report ---
AP ABDOMEN: HISTORY: Ileus. There is decreased gas throughout the abdomen suggesting improvement in the mild ileus since 10/22/17. Near normal bowel gas pattern. IMPRESSION: Improvement in the ileus pattern since yesterday's exam.
--- NOTE | 2017-10-23 15:00 | Progress Note ---
Assessment and Plan Assessment and plan: 77-year-old -[place]wegian female was admitted for small bowel obstruction -Continue postop care, clear liquid diet -IV antibiotics and supportive care. Small bowel obstruction ; evaluated by surgery - Patient with incarcerated incisional hernia, underwent exploratory laparotomy with excision of scar tissue, lysis of very extensive adhesions Intractable nausea and vomiting - improved Acute kidney injury - gentle hydration closely monitored function - Avoid nephrotoxins, resolved Hypernatremia, hypophosphatemia, hypokalemia - Replete potassium, nephrology consulted - patient is on D5 1/2 NS Sepsis: continue empiric Zosyn, blood culture is negative so far. DVT prophylaxis SCDs, no pharmacologic anticoagulation per surgery - patient is postop Hypertension; on hydralazine PRN Diabetes mellitus with hyperglycemia - On sliding scale insulin -Full CODE STATUS Out of bed to chair, physical therapy as tolerated Incentive spirometry History Interval history: Patient was seen and evaluated this morning, patient states she passed gas, and had BM. Patient tolerated liquid diet. Hospitalist Physical - Physical exam Narrative exam: Not in cardiopulmonary distress. NG tube in place. The patient is obese. Vital signs as documented. Head exam is unremarkable. No scleral icterus . Neck is without jugular venous distension, thyromegaly, or carotid bruits. Lungs are clear to auscultation. Cardiac exam reveals regular rate and Rhythm. First and second heart sounds normal. No murmurs, rubs or gallops. Abdominal exam surgical sutures in place. Extremities are nonedematous and both femoral and pedal pulses are normal. 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 No focal weakness. - Constitutional Vitals: Temp Pulse Resp BP Pulse Ox 98.4 F 86 18 152/68 95 10/23/17 11:31 10/23/17 11:31 10/23/17 11:31 10/23/17 11:31 10/23/17 11:31 General appearance: Present: no acute distress Results - Labs CBC & Chem 7: 10/23/17 05:16 10/23/17 05:16 Labs: Laboratory Last Values WBC 9.9 K/mm3 (4.5-11.0) 10/23/17 05:16 RBC 3.12 M/mm3 (3.65-5.03) L 10/23/17 05:16 Hgb 8.3 gm/dl (10.1-14.3) L 10/23/17 05:16 Hct 25.2 % (30.3-42.9) L 10/23/17 05:16 MCV 81 fl (79-97) 10/23/17 05:16 MCH 27 pg (28-32) L 10/23/17 05:16 MCHC 33 % (30-34) 10/23/17 05:16 RDW 14.9 % (13.2-15.2) 10/23/17 05:16 Plt Count 238 K/mm3 (140-440) 10/23/17 05:16 Lymph % (Auto) 24.5 % (13.4-35.0) 10/23/17 05:16 [place] % (Auto) 11.8 % (0.0-7.3) H 10/23/17 05:16 Eos % (Auto) 3.0 % (0.0-4.3) 10/23/17 05:16 Baso % (Auto) 0.4 % (0.0-1.8) 10/23/17 05:16 Lymph # 2.4 K/mm3 (1.2-5.4) 10/23/17 05:16 [place] # 1.2 K/mm3 (0.0-0.8) H 10/23/17 05:16 Eos # 0.3 K/mm3 (0.0-0.4) 10/23/17 05:16 Baso # 0.0 K/mm3 (0.0-0.1) 10/23/17 05:16 Add Manual Diff Complete 10/20/17 04:39 Total Counted 100 10/20/17 04:39 Seg Neutrophils % 60.3 % (40.0-70.0) 10/23/17 05:16 Seg Neuts % (Manual) 73.0 % (40.0-70.0) H 10/20/17 04:39 Band Neutrophils % 6.0 % 10/20/17 04:39 Lymphocytes % (Manual) 11.0 % (13.4-35.0) L 10/20/17 04:39 Reactive Lymphs % (Man) 0 % 10/20/17 04:39 Monocytes % (Manual) 7.0 % (0.0-7.3) 10/20/17 04:39 Eosinophils % (Manual) 1.0 % (0.0-4.3) 10/20/17 04:39 Basophils % (Manual) 0 % (0.0-1.8) 10/20/17 04:39 Metamyelocytes % 2.0 % 10/20/17 04:39 Myelocytes % 0 % 10/20/17 04:39 Promyelocytes % 0 % 10/20/17 04:39 Blast Cells % 0 % 10/20/17 04:39 Nucleated RBC % 2.0 % (0.0-0.9) H 10/20/17 04:39 Seg Neutrophils # 5.9 K/mm3 (1.8-7.7) 10/23/17 05:16 Seg Neutrophils # Man 12.8 K/mm3 (1.8-7.7) H 10/20/17 04:39 Band Neutrophils # 1.1 K/mm3 10/20/17 04:39 Lymphocytes # (Manual) 1.9 K/mm3 (1.2-5.4) 10/20/17 04:39 Abs React Lymphs (Man) 0.0 K/mm3 10/20/17 04:39 Monocytes # (Manual) 1.2 K/mm3 (0.0-0.8) H 10/20/17 04:39 Eosinophils # (Manual) 0.2 K/mm3 (0.0-0.4) 10/20/17 04:39 Basophils # (Manual) 0.0 K/mm3 (0.0-0.1) 10/20/17 04:39 Metamyelocytes # 0.4 K/mm3 10/20/17 04:39 Myelocytes # 0.0 K/mm3 10/20/17 04:39 Promyelocytes # 0.0 K/mm3 10/20/17 04:39 Blast Cells # 0.0 K/mm3 10/20/17 04:39 WBC Morphology Not Reportable 10/20/17 04:39 Hypersegmented Neuts Not Reportable 10/20/17 04:39 Hyposegmented Neuts Not Reportable 10/20/17 04:39 Hypogranular Neuts Not Reportable 10/20/17 04:39 Smudge Cells Not Reportable 10/20/17 04:39 Toxic Granulation Not Reportable 10/20/17 04:39 Toxic Vacuolation Not Reportable 10/20/17 04:39 Dohle Bodies Not Reportable 10/20/17 04:39 Pelger-Huet Anomaly Not Reportable 10/20/17 04:39 Savi Rods Not Reportable 10/20/17 04:39 Platelet Estimate Appears normal 10/20/17 04:39 Clumped Platelets Not Reportable 10/20/17 04:39 Plt Clumps, EDTA Not Reportable 10/20/17 04:39 Large Platelets Not Reportable 10/20/17 04:39 Giant Platelets Not Reportable 10/20/17 04:39 Platelet Satelliting Not Reportable 10/20/17 04:39 Plt Morphology Comment Not Reportable 10/20/17 04:39 RBC Morphology Not Reportable 10/20/17 04:39 Dimorphic RBCs Not Reportable 10/20/17 04:39 Polychromasia Not Reportable 10/20/17 04:39 Hypochromasia 1+ 10/20/17 04:39 Poikilocytosis Not Reportable 10/20/17 04:39 Anisocytosis 1+ 10/20/17 04:39 Microcytosis Not Reportable 10/20/17 04:39 Macrocytosis Not Reportable 10/20/17 04:39 Spherocytes Not Reportable 10/20/17 04:39 Pappenheimer Bodies Not Reportable 10/20/17 04:39 Sickle Cells Not Reportable 10/20/17 04:39 Target Cells Not Reportable 10/20/17 04:39 Tear Drop Cells Not Reportable 10/20/17 04:39 Ovalocytes Not Reportable 10/20/17 04:39 Helmet Cells Not Reportable 10/20/17 04:39 [place] Bodies Not Reportable 10/20/17 04:39 [place] Rings Not Reportable 10/20/17 04:39 [place] Cells Not Reportable 10/20/17 04:39 Bite Cells Not Reportable 10/20/17 04:39 Crenated Cell Not Reportable 10/20/17 04:39 Elliptocytes Not Reportable 10/20/17 04:39 Acanthocytes (Spur) Not Reportable 10/20/17 04:39 Rouleaux Not Reportable 10/20/17 04:39 Hemoglobin C Crystals Not Reportable 10/20/17 04:39 Schistocytes Not Reportable 10/20/17 04:39 Malaria parasites Not Reportable 10/20/17 04:39 Miguel Bodies Not Reportable 10/20/17 04:39 Hem Pathologist Commnt No 10/20/17 04:39 Sodium 152 mmol/L (137-145) H 10/23/17 05:16 Potassium 3.2 mmol/L (3.6-5.0) L 10/23/17 05:16 Chloride 114.0 mmol/L (98-107) H 10/23/17 05:16 Carbon Dioxide 28 mmol/L (22-30) 10/23/17 05:16 Anion Gap 13 mmol/L 10/23/17 05:16 BUN 6 mg/dL (7-17) L 10/23/17 05:16 Creatinine 0.7 mg/dL (0.7-1.2) 10/23/17 05:16 Estimated GFR > 60 ml/min 10/23/17 05:16 BUN/Creatinine Ratio 9 % 10/23/17 05:16 Glucose 151 mg/dL (65-100) H 10/23/17 05:16 POC Glucose 204 (70-105) H 10/23/17 11:40 Hemoglobin A1c 11.7 % (4-6) H 10/15/17 04:51 Lactic Acid 1.90 mmol/L (0.7-2.0) 10/14/17 17:37 Calcium 8.0 mg/dL (8.4-10.2) L 10/23/17 05:16 Phosphorus 2.70 mg/dL (2.5-4.5) D 10/23/17 05:16 Magnesium 2.70 mg/dL (1.7-2.3) H 10/19/17 05:35 Total Bilirubin 0.80 mg/dL (0.1-1.2) 10/14/17 17:37 Direct Bilirubin 0.3 mg/dL (0-0.2) H 10/14/17 17:37 Indirect Bilirubin 0.5 mg/dL 10/14/17 17:37 AST 16 units/L (5-40) 10/14/17 17:37 ALT 24 units/L (7-56) 10/14/17 17:37 Alkaline Phosphatase 82 units/L (35-129) 10/14/17 17:37 Total Protein 7.4 g/dL (6.3-8.2) 10/14/17 17:37 Albumin 3.5 g/dL (3.9-5) L 10/14/17 17:37 Albumin/Globulin Ratio 0.9 % 10/14/17 17:37 Lipase 23 units/L (13-60) 10/14/17 17:37 Urine Color Yellow (Yellow) 10/14/17 22:07 Urine Turbidity Clear (Clear) 10/14/17 22:07 Urine pH 6.0 (5.0-7.0) 10/14/17 22:07 Ur Specific [place] 1.016 (1.003-1.030) 10/14/17 22:07 Urine Protein <15 mg/dl mg/dL (Negative) 10/14/17 22:07 Urine Glucose (UA) >=500 mg/dL (Negative) 10/14/17 22:07 Urine Ketones Neg mg/dL (Negative) 10/14/17 22:07 Urine Blood Neg (Negative) 10/14/17 22:07 Urine Nitrite Neg (Negative) 10/14/17 22:07 Urine Bilirubin Neg (Negative) 10/14/17 22:07 Urine Urobilinogen < 2.0 mg/dL (<2.0) 10/14/17 22:07 Ur Leukocyte Esterase Neg (Negative) 10/14/17 22:07 Urine WBC (Auto) < 1.0 /HPF (0.0-6.0) 10/14/17 22:07 Urine RBC (Auto) 2.0 /HPF (0.0-6.0) 10/14/17 22:07 U Epithel Cells (Auto) < 1.0 /HPF (0-13.0) 10/14/17 22:07 Urine Mucus Few /HPF 10/14/17 22:07 Blood Type O POSITIVE 10/15/17 14:00 Antibody Screen Positive 10/15/17 14:00 Antibody Identification Anti-K 10/15/17 14:00 Crossmatch See Detail 10/15/17 14:00
--- NOTE | 2017-10-23 15:46 | Progress Note ---
Subjective Patient Reports: Positive: no new complaints, feels better, pain is less, flatus , bowel movement Narrative: Doing fine multiple BMs KUB much better for K supplemnt home in AM Objective Vital Signs - 12hr 10/23/17 10/23/17 10/23/17 06:09 07:43 09:10 Temperature 98.5 F 99.1 F Pulse Rate 83 97 H Respiratory 18 18 Rate Blood Pressure 147/74 Blood Pressure 130/62 [Left] O2 Sat by Pulse 100 93 96 Oximetry 10/23/17 11:31 Temperature 98.4 F Pulse Rate 86 Respiratory 18 Rate Blood Pressure 152/68 Blood Pressure [Left] O2 Sat by Pulse 95 Oximetry - Labs 10/23/17 05:16 10/23/17 05:16 Diabetes panel 10/23/17 Range/Units 05:16 Sodium 152 H (137-145) mmol/L Potassium 3.2 L (3.6-5.0) mmol/L Chloride 114.0 H (98-107) mmol/L Carbon Dioxide 28 (22-30) mmol/L BUN 6 L (7-17) mg/dL Creatinine 0.7 (0.7-1.2) mg/dL Glucose 151 H (65-100) mg/dL Calcium 8.0 L (8.4-10.2) mg/dL Calcium panel 10/23/17 Range/Units 05:16 Calcium 8.0 L (8.4-10.2) mg/dL Phosphorus 2.70 D (2.5-4.5) mg/dL Pituitary panel 10/23/17 Range/Units 05:16 Sodium 152 H (137-145) mmol/L Potassium 3.2 L (3.6-5.0) mmol/L Chloride 114.0 H (98-107) mmol/L Carbon Dioxide 28 (22-30) mmol/L BUN 6 L (7-17) mg/dL Creatinine 0.7 (0.7-1.2) mg/dL Glucose 151 H (65-100) mg/dL Calcium 8.0 L (8.4-10.2) mg/dL Adrenal panel 10/23/17 Range/Units 05:16 Sodium 152 H (137-145) mmol/L Potassium 3.2 L (3.6-5.0) mmol/L Chloride 114.0 H (98-107) mmol/L Carbon Dioxide 28 (22-30) mmol/L BUN 6 L (7-17) mg/dL Creatinine 0.7 (0.7-1.2) mg/dL Glucose 151 H (65-100) mg/dL Calcium 8.0 L (8.4-10.2) mg/dL
[2017-10-23] MEDS: LANTUS SUB-Q SCH (21:28)
[2017-10-24] MEDS: D5/0.45NS 1,000 ML IV SCH (03:29)
[2017-10-24 05:10] LABS: BUN/Creatinine Ratio 6; Blood Urea Nitrogen 5 mg/dL (7-17); Calcium 8.2 mg/dL (8.4-10.2); Hemolysis Index 16
[2017-10-24] MEDS: HumaLOG SUB-Q SCH ×4 (05:35→18:09)
[2017-10-24] MEDS: ZOSYN/NS 4.5GM/100ML 4.5 GM/100 ML VIAL IV SCH ×3 (05:42→22:57)
[2017-10-24] MEDS ORDERED: D5W 1,000 ML IV SCH (09:00)
--- NOTE | 2017-10-24 09:15 | Progress Note ---
Subjective Interval history: Patient was seen today for follow-up, regarding multiple renal related issues Potassium still remains low Patient denies any complaints of chest pain pressure or shortness of breath Interdisciplinary Notes were also reviewed from past 24 hours Vitals labs intake output medications: Reviewed Past medical history: Reviewed Allergies: Reviewed Social history: Reviewed Family history: Reviewed Physical examination Gen.: No acute distress HEENT: Mild pallor nor icterus no uremic order Neck: Supple without any mass or JVD Chest: Clear to auscultation anteriorly Heart: Regular rate and rhythm S1 and S2 heard Abdomen: Soft nontender Extremity: Edema , no peripheral cyanosis Skin: No petechial rashes dry skin Assessment and plan Chronic hypernatremia: Slowly improving, change IV fluid to D5 with potassium Give additional rider for potassium Hypokalemia replace potassium also would like to check magnesium level Hypophosphatemia: Improving well Care plan has been discussed with patient from renal standpoint Overall patient is progressing as desired from renal standpoint Patient does have good understanding about renal related issues We'll continue to follow and make recommendation from renal standpoint Objective - Vital Signs Vital signs: Vital Signs - 12hr 10/23/17 10/23/17 10/23/17 21:48 22:39 23:57 Temperature 98.2 F Pulse Rate 82 77 Respiratory 16 20 Rate Blood Pressure 114/58 Blood Pressure 146/66 [Right] O2 Sat by Pulse 96 96 98 Oximetry 10/24/17 10/24/17 10/24/17 00:00 04:22 04:49 Temperature 97.9 F 98.9 F Pulse Rate 78 Respiratory 20 Rate Blood Pressure 116/57 Blood Pressure [Right] O2 Sat by Pulse 99 Oximetry 10/24/17 07:18 Temperature 98.8 F Pulse Rate 79 Respiratory 18 Rate Blood Pressure 120/63 Blood Pressure [Right] O2 Sat by Pulse 98 Oximetry - Lab 10/23/17 05:16 10/24/17 04:40 Most recent lab results Calcium 8.2 mg/dL (8.4-10.2) L 10/24/17 04:40 Phosphorus 3.20 mg/dL (2.5-4.5) 10/24/17 04:40 Magnesium 2.70 mg/dL (1.7-2.3) H 10/19/17 05:35
[2017-10-24] MEDS: PEPCID IV SCH ×2 (10:09→23:04)
[2017-10-24] MEDS: HEPARIN SUB-Q SCH ×2 (10:19→23:05)
[2017-10-24] MEDS: KCL 40 MEQ in D5W 1,000 ML IV SCH ×2 (11:16→23:33)
[2017-10-24] MEDS: KCL 10MEQ/100ML 10 MEQ/100 ML BAG IV SCH ×3 (11:46→20:03)
[2017-10-24] MEDS: DILAUDID IV PRN ×2 (13:44→20:02)
--- NOTE | 2017-10-24 13:54 | Progress Note ---
Assessment and Plan Assessment and plan: 77-year-old -[place] female was admitted for small bowel obstruction -Continue postop care, clear liquid diet -IV antibiotics and supportive care. Small bowel obstruction ; evaluated by surgery - Patient with incarcerated incisional hernia, underwent exploratory laparotomy with excision of scar tissue, lysis of very extensive adhesions Intractable nausea and vomiting - improved Acute kidney injury - gentle hydration closely monitored function - Avoid nephrotoxins, resolved Hypernatremia, hypophosphatemia, hypokalemia - Fluid is changed to D5W with potassium - Will check BMP in the morning Sepsis: continue empiric Zosyn, blood culture is negative so far. DVT prophylaxis SCDs, no pharmacologic anticoagulation per surgery - patient is postop Hypertension; on hydralazine PRN Diabetes mellitus with hyperglycemia - On sliding scale insulin -Full CODE STATUS Out of bed to chair, physical therapy as tolerated Incentive spirometry Disposition - Possible D/C tomorrow, Still the patient is hypernatremic. History Interval history: Patient was seen and evaluated this morning, patient on soft diet. Patient didn' t have any complaints. Hospitalist Physical - Physical exam Narrative exam: Not in cardiopulmonary distress. NG tube in place. The patient is obese. Vital signs as documented. Head exam is unremarkable. No scleral icterus . Neck is without jugular venous distension, thyromegaly, or carotid bruits. Lungs are clear to auscultation. Cardiac exam reveals regular rate and Rhythm. First and second heart sounds normal. No murmurs, rubs or gallops. Abdominal exam surgical sutures in place. One suture was taken out. Small oozing. Extremities are nonedematous and both femoral and pedal pulses are normal. 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 No focal weakness. - Constitutional Vitals: Temp Pulse Resp BP Pulse Ox 97.9 F 84 18 132/64 98 10/24/17 12:00 10/24/17 12:00 10/24/17 12:00 10/24/17 12:00 10/24/17 12:00 General appearance: Present: no acute distress Results - Labs CBC & Chem 7: 10/23/17 05:16 10/24/17 04:40 Labs: Laboratory Last Values WBC 9.9 K/mm3 (4.5-11.0) 10/23/17 05:16 RBC 3.12 M/mm3 (3.65-5.03) L 10/23/17 05:16 Hgb 8.3 gm/dl (10.1-14.3) L 10/23/17 05:16 Hct 25.2 % (30.3-42.9) L 10/23/17 05:16 MCV 81 fl (79-97) 10/23/17 05:16 MCH 27 pg (28-32) L 10/23/17 05:16 MCHC 33 % (30-34) 10/23/17 05:16 RDW 14.9 % (13.2-15.2) 10/23/17 05:16 Plt Count 238 K/mm3 (140-440) 10/23/17 05:16 Lymph % (Auto) 24.5 % (13.4-35.0) 10/23/17 05:16 [place] % (Auto) 11.8 % (0.0-7.3) H 10/23/17 05:16 Eos % (Auto) 3.0 % (0.0-4.3) 10/23/17 05:16 Baso % (Auto) 0.4 % (0.0-1.8) 10/23/17 05:16 Lymph # 2.4 K/mm3 (1.2-5.4) 10/23/17 05:16 [place] # 1.2 K/mm3 (0.0-0.8) H 10/23/17 05:16 Eos # 0.3 K/mm3 (0.0-0.4) 10/23/17 05:16 Baso # 0.0 K/mm3 (0.0-0.1) 10/23/17 05:16 Add Manual Diff Complete 10/20/17 04:39 Total Counted 100 10/20/17 04:39 Seg Neutrophils % 60.3 % (40.0-70.0) 10/23/17 05:16 Seg Neuts % (Manual) 73.0 % (40.0-70.0) H 10/20/17 04:39 Band Neutrophils % 6.0 % 10/20/17 04:39 Lymphocytes % (Manual) 11.0 % (13.4-35.0) L 10/20/17 04:39 Reactive Lymphs % (Man) 0 % 10/20/17 04:39 Monocytes % (Manual) 7.0 % (0.0-7.3) 10/20/17 04:39 Eosinophils % (Manual) 1.0 % (0.0-4.3) 10/20/17 04:39 Basophils % (Manual) 0 % (0.0-1.8) 10/20/17 04:39 Metamyelocytes % 2.0 % 10/20/17 04:39 Myelocytes % 0 % 10/20/17 04:39 Promyelocytes % 0 % 10/20/17 04:39 Blast Cells % 0 % 10/20/17 04:39 Nucleated RBC % 2.0 % (0.0-0.9) H 10/20/17 04:39 Seg Neutrophils # 5.9 K/mm3 (1.8-7.7) 10/23/17 05:16 Seg Neutrophils # Man 12.8 K/mm3 (1.8-7.7) H 10/20/17 04:39 Band Neutrophils # 1.1 K/mm3 10/20/17 04:39 Lymphocytes # (Manual) 1.9 K/mm3 (1.2-5.4) 10/20/17 04:39 Abs React Lymphs (Man) 0.0 K/mm3 10/20/17 04:39 Monocytes # (Manual) 1.2 K/mm3 (0.0-0.8) H 10/20/17 04:39 Eosinophils # (Manual) 0.2 K/mm3 (0.0-0.4) 10/20/17 04:39 Basophils # (Manual) 0.0 K/mm3 (0.0-0.1) 10/20/17 04:39 Metamyelocytes # 0.4 K/mm3 10/20/17 04:39 Myelocytes # 0.0 K/mm3 10/20/17 04:39 Promyelocytes # 0.0 K/mm3 10/20/17 04:39 Blast Cells # 0.0 K/mm3 10/20/17 04:39 WBC Morphology Not Reportable 10/20/17 04:39 Hypersegmented Neuts Not Reportable 10/20/17 04:39 Hyposegmented Neuts Not Reportable 10/20/17 04:39 Hypogranular Neuts Not Reportable 10/20/17 04:39 Smudge Cells Not Reportable 10/20/17 04:39 Toxic Granulation Not Reportable 10/20/17 04:39 Toxic Vacuolation Not Reportable 10/20/17 04:39 Dohle Bodies Not Reportable 10/20/17 04:39 Pelger-Huet Anomaly Not Reportable 10/20/17 04:39 Savi Rods Not Reportable 10/20/17 04:39 Platelet Estimate Appears normal 10/20/17 04:39 Clumped Platelets Not Reportable 10/20/17 04:39 Plt Clumps, EDTA Not Reportable 10/20/17 04:39 Large Platelets Not Reportable 10/20/17 04:39 Giant Platelets Not Reportable 10/20/17 04:39 Platelet Satelliting Not Reportable 10/20/17 04:39 Plt Morphology Comment Not Reportable 10/20/17 04:39 RBC Morphology Not Reportable 10/20/17 04:39 Dimorphic RBCs Not Reportable 10/20/17 04:39 Polychromasia Not Reportable 10/20/17 04:39 Hypochromasia 1+ 10/20/17 04:39 Poikilocytosis Not Reportable 10/20/17 04:39 Anisocytosis 1+ 10/20/17 04:39 Microcytosis Not Reportable 10/20/17 04:39 Macrocytosis Not Reportable 10/20/17 04:39 Spherocytes Not Reportable 10/20/17 04:39 Pappenheimer Bodies Not Reportable 10/20/17 04:39 Sickle Cells Not Reportable 10/20/17 04:39 Target Cells Not Reportable 10/20/17 04:39 Tear Drop Cells Not Reportable 10/20/17 04:39 Ovalocytes Not Reportable 10/20/17 04:39 Helmet Cells Not Reportable 10/20/17 04:39 [place] Bodies Not Reportable 10/20/17 04:39 [place] Rings Not Reportable 10/20/17 04:39 [place] Cells Not Reportable 10/20/17 04:39 Bite Cells Not Reportable 10/20/17 04:39 Crenated Cell Not Reportable 10/20/17 04:39 Elliptocytes Not Reportable 10/20/17 04:39 Acanthocytes (Spur) Not Reportable 10/20/17 04:39 Rouleaux Not Reportable 10/20/17 04:39 Hemoglobin C Crystals Not Reportable 10/20/17 04:39 Schistocytes Not Reportable 10/20/17 04:39 Malaria parasites Not Reportable 10/20/17 04:39 Miguel Bodies Not Reportable 10/20/17 04:39 Hem Pathologist Commnt No 10/20/17 04:39 Sodium 151 mmol/L (137-145) H 10/24/17 04:40 Potassium 3.5 mmol/L (3.6-5.0) L 10/24/17 04:40 Chloride 113.7 mmol/L (98-107) H 10/24/17 04:40 Carbon Dioxide 30 mmol/L (22-30) 10/24/17 04:40 Anion Gap 11 mmol/L 10/24/17 04:40 BUN 5 mg/dL (7-17) L 10/24/17 04:40 Creatinine 0.8 mg/dL (0.7-1.2) 10/24/17 04:40 Estimated GFR > 60 ml/min 10/24/17 04:40 BUN/Creatinine Ratio 6 % 10/24/17 04:40 Glucose 151 mg/dL (65-100) H 10/23/17 05:16 POC Glucose 132 (70-105) H 10/24/17 11:41 Hemoglobin A1c 11.7 % (4-6) H 10/15/17 04:51 Lactic Acid 1.90 mmol/L (0.7-2.0) 10/14/17 17:37 Calcium 8.2 mg/dL (8.4-10.2) L 10/24/17 04:40 Phosphorus 3.20 mg/dL (2.5-4.5) 10/24/17 04:40 Magnesium 2.10 mg/dL (1.7-2.3) 10/24/17 04:40 Total Bilirubin 0.80 mg/dL (0.1-1.2) 10/14/17 17:37 Direct Bilirubin 0.3 mg/dL (0-0.2) H 10/14/17 17:37 Indirect Bilirubin 0.5 mg/dL 10/14/17 17:37 AST 16 units/L (5-40) 10/14/17 17:37 ALT 24 units/L (7-56) 10/14/17 17:37 Alkaline Phosphatase 82 units/L (35-129) 10/14/17 17:37 Total Protein 7.4 g/dL (6.3-8.2) 10/14/17 17:37 Albumin 3.5 g/dL (3.9-5) L 10/14/17 17:37 Albumin/Globulin Ratio 0.9 % 10/14/17 17:37 Lipase 23 units/L (13-60) 10/14/17 17:37 Urine Color Yellow (Yellow) 10/14/17 22:07 Urine Turbidity Clear (Clear) 10/14/17 22:07 Urine pH 6.0 (5.0-7.0) 10/14/17 22:07 Ur Specific [place] 1.016 (1.003-1.030) 10/14/17 22:07 Urine Protein <15 mg/dl mg/dL (Negative) 10/14/17 22:07 Urine Glucose (UA) >=500 mg/dL (Negative) 10/14/17 22:07 Urine Ketones Neg mg/dL (Negative) 10/14/17 22:07 Urine Blood Neg (Negative) 10/14/17 22:07 Urine Nitrite Neg (Negative) 10/14/17 22:07 Urine Bilirubin Neg (Negative) 10/14/17 22:07 Urine Urobilinogen < 2.0 mg/dL (<2.0) 10/14/17 22:07 Ur Leukocyte Esterase Neg (Negative) 10/14/17 22:07 Urine WBC (Auto) < 1.0 /HPF (0.0-6.0) 10/14/17 22:07 Urine RBC (Auto) 2.0 /HPF (0.0-6.0) 10/14/17 22:07 U Epithel Cells (Auto) < 1.0 /HPF (0-13.0) 10/14/17 22:07 Urine Mucus Few /HPF 10/14/17 22:07 Blood Type O POSITIVE 10/15/17 14:00 Antibody Screen Positive 10/15/17 14:00 Antibody Identification Anti-K 10/15/17 14:00 Crossmatch See Detail 10/15/17 14:00
--- NOTE | 2017-10-24 15:36 | Progress Note ---
Subjective Patient Reports: Positive: feels better, pain is less, flatus, bowel movement Narrative: Doing OK , abd distended firm today still hi NA 150 will check with a KUB Objective Vital Signs - 12hr 10/24/17 10/24/17 10/24/17 04:22 04:49 07:18 Temperature 98.9 F 98.8 F Pulse Rate 78 79 Respiratory 20 18 Rate Blood Pressure 116/57 120/63 Blood Pressure [Left] O2 Sat by Pulse 99 98 Oximetry 10/24/17 12:00 Temperature 97.9 F Pulse Rate 84 Respiratory 18 Rate Blood Pressure Blood Pressure 132/64 [Left] O2 Sat by Pulse 98 Oximetry - Labs 10/23/17 05:16 10/24/17 04:40 Diabetes panel 10/24/17 Range/Units 04:40 Sodium 151 H (137-145) mmol/L Potassium 3.5 L (3.6-5.0) mmol/L Chloride 113.7 H (98-107) mmol/L Carbon Dioxide 30 (22-30) mmol/L BUN 5 L (7-17) mg/dL Creatinine 0.8 (0.7-1.2) mg/dL Glucose 68 (65-100) mg/dL Calcium 8.2 L (8.4-10.2) mg/dL Calcium panel 10/24/17 Range/Units 04:40 Calcium 8.2 L (8.4-10.2) mg/dL Phosphorus 3.20 (2.5-4.5) mg/dL Pituitary panel 10/24/17 Range/Units 04:40 Sodium 151 H (137-145) mmol/L Potassium 3.5 L (3.6-5.0) mmol/L Chloride 113.7 H (98-107) mmol/L Carbon Dioxide 30 (22-30) mmol/L BUN 5 L (7-17) mg/dL Creatinine 0.8 (0.7-1.2) mg/dL Glucose 68 (65-100) mg/dL Calcium 8.2 L (8.4-10.2) mg/dL Adrenal panel 10/24/17 Range/Units 04:40 Sodium 151 H (137-145) mmol/L Potassium 3.5 L (3.6-5.0) mmol/L Chloride 113.7 H (98-107) mmol/L Carbon Dioxide 30 (22-30) mmol/L BUN 5 L (7-17) mg/dL Creatinine 0.8 (0.7-1.2) mg/dL Glucose 68 (65-100) mg/dL Calcium 8.2 L (8.4-10.2) mg/dL
--- NOTE | 2017-10-24 19:42 | XRay Report ---
FINAL REPORT PROCEDURE: Abdomen. TECHNIQUE: Supine AP views. HISTORY: Abdominal swelling. COMPARISON: No prior studies are available for comparison. FINDINGS: The bowel gas pattern is normal. There are no signs of obstruction. There are numerous metallic coils in the abdomen which are probably part of surgical mesh material. The soft tissues are unremarkable. The regional skeleton appears intact. IMPRESSION: No evidence of acute disease.
[2017-10-24] MEDS: LANTUS SUB-Q SCH (23:03)
[2017-10-25] MEDS: DILAUDID IV PRN ×3 (03:18→15:12)
[2017-10-25] MEDS: ZOSYN/NS 4.5GM/100ML 4.5 GM/100 ML VIAL IV SCH ×2 (05:50→15:12)
[2017-10-25] MEDS: HumaLOG SUB-Q SCH ×3 (06:39→12:12)
[2017-10-25 07:11] LABS: BUN/Creatinine Ratio 4; Blood Urea Nitrogen 4 mg/dL (7-17); Calcium 8.1 mg/dL (8.4-10.2); Hemolysis Index 9
[2017-10-25] MEDS: HEPARIN SUB-Q SCH (09:54)
[2017-10-25] MEDS: KCL 40 MEQ in D5W 1,000 ML IV SCH (09:55)
[2017-10-25] MEDS ORDERED: PEPCID PO SCH (10:00)
[2017-10-25 15:11] VITALS: BP 158/72
--- NOTE | 2017-10-25 15:22 | Progress Note ---
Subjective Patient Reports: Positive: feels better, flatus, bowel movement Narrative: doing fine , good BMs abd a little distended will ? discharge as per I medicine Objective Vital Signs - 12hr 10/25/17 10/25/17 10/25/17 04:42 08:04 09:54 Temperature 98.9 F Pulse Rate 74 79 Respiratory 20 20 20 Rate Blood Pressure 136/64 156/82 O2 Sat by Pulse 96 98 Oximetry 10/25/17 10/25/17 10/25/17 10:24 15:00 15:11 Temperature 98.8 F Pulse Rate 105 H Respiratory 20 20 Rate Blood Pressure 158/72 O2 Sat by Pulse 97 Oximetry 10/25/17 15:12 Temperature Pulse Rate Respiratory 20 Rate Blood Pressure O2 Sat by Pulse Oximetry - Labs 10/23/17 05:16 10/25/17 05:13 Diabetes panel 10/25/17 Range/Units 05:13 Sodium 145 (137-145) mmol/L Potassium 4.0 (3.6-5.0) mmol/L Chloride 110.0 H (98-107) mmol/L Carbon Dioxide 27 (22-30) mmol/L BUN 4 L (7-17) mg/dL Creatinine 0.9 (0.7-1.2) mg/dL Glucose 125 H (65-100) mg/dL Calcium 8.1 L (8.4-10.2) mg/dL Calcium panel 10/25/17 Range/Units 05:13 Calcium 8.1 L (8.4-10.2) mg/dL Phosphorus 2.60 (2.5-4.5) mg/dL Pituitary panel 10/25/17 Range/Units 05:13 Sodium 145 (137-145) mmol/L Potassium 4.0 (3.6-5.0) mmol/L Chloride 110.0 H (98-107) mmol/L Carbon Dioxide 27 (22-30) mmol/L BUN 4 L (7-17) mg/dL Creatinine 0.9 (0.7-1.2) mg/dL Glucose 125 H (65-100) mg/dL Calcium 8.1 L (8.4-10.2) mg/dL Adrenal panel 10/25/17 Range/Units 05:13 Sodium 145 (137-145) mmol/L Potassium 4.0 (3.6-5.0) mmol/L Chloride 110.0 H (98-107) mmol/L Carbon Dioxide 27 (22-30) mmol/L BUN 4 L (7-17) mg/dL Creatinine 0.9 (0.7-1.2) mg/dL Glucose 125 H (65-100) mg/dL Calcium 8.1 L (8.4-10.2) mg/dL
--- NOTE | 2017-10-25 17:05 | Discharge Summary ---
Providers - Providers Date of Admission: 10/15/17 00:37 Attending physician: OSEAS HASTINGS MD 10/14/17 22:51 Consult to Physician [CONS] Routine Comment: Consulting Provider: FAHAD BEST Physician Instructions: Reason For Exam: Partial SBO, abdominal hernia 10/18/17 11:06 Physical Therapy Evaluation and Treat [CONS] Routine Comment: Reason For Exam: eval 10/19/17 09:52 Consult to Physician [CONS] Routine Comment: Consulting Provider: MARY NARAYANAN Physician Instructions: Reason For Exam: hypernatremia, hypophosphatemia 10/24/17 09:03 Consult to Wound/ET Nurse [CONS] Routine Reason For Exam: wound eval Primary care physician: [employer] Hospitalization Reason for admission: Bowel obstruction Condition: Stable Disposition: [id number] HOME UNDER HOME HL Time spent for discharge: 31 minutes - Discharge Diagnoses (1) Small bowel obstruction, partial Status: Acute (2) Abdominal pain Status: Chronic (3) Diabetes Status: Chronic (4) HTN (hypertension) Status: Chronic (5) Ventral hernia Status: Chronic Core Measure Documentation - Palliative Care Palliative Care/ Comfort Measures: Not Applicable - Core Measures Any of the following diagnoses?: none Exam - Physical Exam Narrative exam: Not in cardiopulmonary distress. NG tube in place. The patient is obese. Vital signs as documented. Head exam is unremarkable. No scleral icterus . Neck is without jugular venous distension, thyromegaly, or carotid bruits. Lungs are clear to auscultation. Cardiac exam reveals regular rate and Rhythm. First and second heart sounds normal. No murmurs, rubs or gallops. Abdominal exam surgical sutures in place. One suture was taken out. Small oozing. Extremities are nonedematous and both femoral and pedal pulses are normal. [employer] OR TRAP: Alert and oriented 3. No focal weakness. - Constitutional Vitals: Temp Pulse Resp BP Pulse Ox 98.8 F 105 H 16 158/72 97 10/25/17 15:11 10/25/17 15:00 10/25/17 15:42 10/25/17 15:00 10/25/17 15:00 Plan Activity: no restrictions Weight Bearing Status: Full Weight Bearing Diet: low cholesterol, low salt, diabetic Follow up with: PRIMARY CAREMD [Primary Care Provider] - 7 Days (Follow up at [facility] in 1[facility]2 weeks) FAHAD BEST MD [Staff Physician] - 7 Days Prescriptions: HYDROmorphone [Dilaudid] 2 mg PO Q6HR #12 tablet
== END 2017-10-25 18:20 | disposition home or self-care (01) | DRG 854 ==
LOC: ED 16:45 → 3B-SURG 10-15 00:37
PROVIDERS: ADMIT Internal Medicine; ATTEND Internal Medicine
PROC: 0DN80ZZ Release Small Intestine, Open Approach (ICD-10-PCS; principal; 2017-10-15)
PROC: 3E0234Z Introduction of Serum, Toxoid and Vaccine into Muscle, Percutaneous Approach (ICD-10-PCS; 2017-10-16)
DX: A41.9 Sepsis, unspecified organism (principal); K56.600 Partial intestinal obstruction, unspecified as to cause; N17.9 Acute kidney failure, unspecified; E87.1 Hypo-osmolality and hyponatremia; K43.0 Incisional hernia with obstruction, without gangrene; I10 Essential (primary) hypertension; E11.65 Type 2 diabetes mellitus with hyperglycemia; E86.0 Dehydration; D72.829 Elevated white blood cell count, unspecified; E83.39 Other disorders of phosphorus metabolism; E87.6 Hypokalemia; D64.9 Anemia, unspecified; K43.9 Ventral hernia without obstruction or gangrene; Z88.1 Allergy status to other antibiotic agents; Z88.8 Allergy status to other drugs, medicaments and biological substances; Z23 Encounter for immunization
CPT/HCPCS: 36415; 74018; 74177; 80048; 80074; 81001; 82140; 82150; 82962; 83036; 83690; 83735; 84100; 85007; 85014; 85018; 85025; 85027; 86850; 86870; 86900; 86901; 86922; 87040; 88302; 88305; 94760; 99285; C9113; J0330; J0360; J1170; J1450; J1644; J1815; J1885; J2270; J2370; J2405; J2543; J2704; J3480; J7030; J7040; J7050; J7070; Q9967